=== PATIENT | female | born 1930 | race Caucasian/White ===

== ENCOUNTER 2017-03-14 11:45 | Emergency (ER) | payer MEDICARE ==
[~2017-03-14] VITALS: Ht 167.6 cm; Wt 46.7 kg
[~2017-03-14 11:45] MED LIST: ADVAIR 250-501 EACH INH; ASPIRIN325 MG PO; ATORVASTATIN CA10 MG PO; CALCIUM + VITA1 EACH PO; CARBAMAZEPINE200 M2 PO; DAILY VITE1 EACH PO; MELOXICAM7.5 MG PO; MIRALAX17 GM PO; NORCO 5-325 TA1 EACH PO; PREDNISONE20 MG PO; ZITHROMAX250 MG PO
[2017-03-14] MEDS ORDERED: LASIX20 MG PO (14:10)
[2017-03-14] MEDS ORDERED: KLOR-CON 88 MEQ PO (14:10)
--- NOTE | 2017-03-15 18:24 | EKG ---
[facility] [address] [facility] [place] [address] Signed Normal sinus rhythm Possible Left atrial enlargement Left posterior fascicular block T wave abnormality, consider inferior ischemia T wave abnormality, consider anterior ischemia Abnormal ECG When compared with ECG of 20-JUN-2016 22:47, T wave inversion now evident in Inferior leads T wave inversion now evident in Anterior leads Confirmed by ARRON SHANE MD ([id number]) on 03/15/2017 6:23:56 PM Electronically Signed By: ARRON SHANE MD 03/15/17 1824 PATIENT NAME: ANDREA PATEL Electrocardiogram DATE OF : 34 PHYSICIAN: ARRON SHANE MD REPORT #: [id number] REPORT IS CONFIDENTIAL AND NOT TO BE RELEASED WITHOUT AUTHORIZATION
== END 2017-03-14 14:25 | disposition home or self-care (01) ==
LOC: ED 11:45
DX: I50.9 Heart failure, unspecified (principal); J44.9 Chronic obstructive pulmonary disease, unspecified; F17.200 Nicotine dependence, unspecified, uncomplicated; Z90.710 Acquired absence of both cervix and uterus; Z89.429 Acquired absence of other toe(s), unspecified side; Z90.49 Acquired absence of other specified parts of digestive tract; Z88.1 Allergy status to other antibiotic agents; Z88.8 Allergy status to other drugs, medicaments and biological substances; Z79.899 Other long term (current) drug therapy; Z79.82 Long term (current) use of aspirin
CPT/HCPCS: 71020; 80053; 83880; 84484; 85025; 93005; 93010; 99284

== ENCOUNTER 2017-07-30 12:32 | Emergency (ER) | payer MEDICARE ==
[~2017-07-30] VITALS: Ht 167.6 cm; Wt 46.7 kg
--- OUTSIDE RECORDS SUMMARY | ~2017-07-30 | XMS | Clinical Summary ---
Demographics + + + | Address | [address] | | | [place] [address] | + + + | Home Phone | | + + + | Preferred Language | Unknown | + + + | Marital Status | Single | + + + | Shinto Affiliation | Unknown | + + + | Race | Unknown | + + + | Ethnic Group | Other Race | + + + Author + + + | Author | [facility] | + + + | Organization | [facility] | + + + | Address | Unknown | + + + | Phone | Unavailable | + + + Care Team Providers + +------+ + | Care Salesperson [employer]obiles Name | Role | Phone | + +------+ + PP | Unavailable | + +------+ + Source Comments BECKI is fully live on both [facility] Ambulatory and [facility] InPatient.[facility] Allergies Not on File Current Medications Not [...]
[~2017-07-30 12:32] MED LIST changes: +KLOR-CON 88 MEQ PO; +LASIX20 MG PO
[2017-07-30] MEDS ORDERED: LAMOTRIGINE25 MG PO (15:20)
[2017-07-30] MEDS ORDERED: OXYCODONE HCL5 MG PO (15:20)
== END 2017-07-30 15:35 | disposition home or self-care (01) ==
LOC: ED 12:32
DX: G50.0 Trigeminal neuralgia (principal); J44.9 Chronic obstructive pulmonary disease, unspecified; F17.200 Nicotine dependence, unspecified, uncomplicated; Z90.49 Acquired absence of other specified parts of digestive tract; Z90.710 Acquired absence of both cervix and uterus; Z88.1 Allergy status to other antibiotic agents; Z88.8 Allergy status to other drugs, medicaments and biological substances; Z79.899 Other long term (current) drug therapy; Z79.82 Long term (current) use of aspirin; Z89.429 Acquired absence of other toe(s), unspecified side
CPT/HCPCS: 99283

== ENCOUNTER 2017-08-04 16:37 | Inpatient (IN) | payer MEDICARE ==
[~2017-08-04] VITALS: Ht 167.6 cm; Wt 38.5 kg
--- OUTSIDE RECORDS SUMMARY | ~2017-08-04 | XMS | Clinical Summary ---
Demographics + + + | Address | [address] | | | [place] [address] | + + + | Home Phone | | + + + | Preferred Language | Unknown | + + + | Marital Status | Single | + + + | Mormonism Affiliation | Unknown | + + + | Race | Unknown | + + + | Ethnic Group | Other Race | + + + Author + + + | Author | [facility] | + + + | Organization | [facility] | + + + | Address | Unknown | + + + | Phone | Unavailable | + + + Care Team Providers + +------+ + | Care Supervisor Maintenance Name | Role | Phone | + +------+ + PP | Unavailable | + +------+ + Source Comments BECKI is fully live on both [facility] Ambulatory and [facility] InPatient.[facility] & [facility] Allergies Not on File Current Medications Not on file Active Problems Not on file Social History + +-------+ +--------+------+ | Tobacco Use | Types | Packs/Day | Years | Date | | | | | Used | | + +-------+ +--------+------+ | Never Assessed | | | | | + +-------+ +--------+------+ + + + | Sex Assigned at | Date Recorded | | | | + + + | Not on file | | + + + Plan of Treatment Not on file Results Not on filefrom Last 3 Months"
[~2017-08-04 16:37] MED LIST changes: +LAMOTRIGINE25 MG PO; +OXYCODONE HCL5 MG PO
--- NOTE | 2017-08-04 20:25 | NUR ---
PT HAS ARRIVED ON FLOOR. PT IS DISORIENTED TO ALL AT THIS TIME AND PHYSICALLY VERY WEAK. PT IS ALSO NOT ABLE TO FOLLOW MOST COMMANDS. PT HOWEVER DID PASS BEDSIDE SWALLOW STUDY AND WAS ABLE TO TAKE HER MEDICATION WITHOUT ASPIRATING. PERRLA IS REACTIVE, ALL LOBES ARE CLEAR.
--- NOTE | 2017-08-04 20:39 | EKG ---
[facility] [address] [facility] [place] [address] Signed Normal sinus rhythm Rightward axis Nonspecific ST abnormality Abnormal ECG When compared with ECG of 14-MAR-2017 12:39, T wave inversion less evident in Anterior leads Confirmed by ARRON SHANE MD ([id number]) on 08/04/2017 8:38:57 PM Electronically Signed By: ARRON SHANE MD 08/04/17 2039 PATIENT NAME: ANDREA PATEL Electrocardiogram DATE OF : 34 PHYSICIAN: ARRON SHANE MD REPORT #: [id number] REPORT IS CONFIDENTIAL AND NOT TO BE RELEASED WITHOUT AUTHORIZATION
--- NOTE | 2017-08-04 22:21 | NUR ---
PT FOUND WITH BOTH LEGS BETWEEN THE RAILS IN AN ATTEMPT TO GET OUT OF BED. CALL LIGHT WITIN HER REACH, BED ALARM ON. NEEDED VERBAL CUEING TO WAIT UNTIL RAIL DOWN AND COMMODE IN PLACE. ONE PERSON MIMINAL ASSISTANCE. ONCE DONE, SHE READILY GOT INTO BED, AND COVERED SELF UP. NOTE NO DEFICITS WITH BOTH LEGS AND ARMS. SPEECH AND "UNDERSTANDING" SEEMS AFFECTED. CALL LIGHT WITHIN HER REACH, AND BED ALARM SET.
--- NOTE | 2017-08-04 22:30 | NUR ---
BED ALARM ALERTED STAFF TO PATIENT EXITING BED. PATIENT HAD CLIMBED OVER BEDSIDE RAILS AND WAS HEADED INTO BATHROOM. ASSISTED PATIENT TO BSC. PATIENT SPEAKS CLEARLY BUT HER SPEECH IS INAPPROPRIATE. PATIENT ASSISTED BACK INTO BED. BED ALARM ON. CALL LIGHT IN REACH.
--- NOTE | 2017-08-05 01:27 | NUR ---
PATIENT EXITED THE BED WITHOUT ALERTING STAFF. BED ALARM SOUNDED. PATIENT ASSITED TO BSC. FOAM DRESSING APPLIED TO COCCYX AREA, REDNESS IN BLANCHABLE. PATIENT BACK IN BED. BED ALARM ON. PATIENT DOES NOT ANSWER QUESTIONS APPROPRIATELY. NO PHYSICAL DEFIECITS NOTICED.
--- NOTE | 2017-08-05 02:01 | NUR ---
PATIENT ASSESSMENT FIND PATIENT TO BE DISORIENTED TO ALL. PATIENT IS PLESANT BUT HER SPEECH IS INAPPROPRIATE. PATIENT DOES NOT FOLLOW DIRECTIONS BUT THERE DOES NOT APPEAR TO BE ANY PHYSICAL DEFICITS. PATIENT IS WEAK BUT ABLE TO MOVE HERSELF IN BAD AND AMBULATE WITHOUT ASSITANCE. SPEECH IS NOT SLURRED. PUPILS ARE EQUAL AND REACTIVE TO LIGHT. PATIENT HAS CLEAR LUNG SOUNDS THROUGHOUT, BREATHING IS SLIGHTLY LABORED. O2 SAT 100% ON 3L, TITRATED TO 2L NC. ABD IS FLAT, NONTENDER, AND BOWEL SOUNDS ARE ACTIVE. PATIENT APPEARS MALNOURISHED. TURNED PATIENT ONTO HER RIGHT SIDE. BED ALARM IN ON. PATIENT DENIES NEED TO USE THE BATHROOM. IVF INFUSING, SITE WNL.
--- NOTE | 2017-08-05 03:30 | NUR ---
BED ALARM ALERTED STAFF TO PATIENT GETTING OUT OF BED. ASSISTED PATIENT TO THE BSC. PATIENT BACK IN BED. BED ALARM ON.
--- NOTE | 2017-08-05 04:45 | NUR ---
NEW IV PLACED. PATIENT TOLERATED WELL. PATIENT IS RESTING COMFORTABLY. PATIENT'S SPEECH IS INAPPROPRIATE BUT CLEAR. UNABLE TO ANSWER QUESTIONS OR FOLLOW COMMANDS. IS COMPLAINT WITH CARE. NO CHANGES IN NEURO ASSESSMENT. PATIENT DRANK SOME WATER. NO COUGHING OR SIGNS OF ASPIRATION NOTED. BED ALARM ON.
--- NOTE | 2017-08-05 05:40 | NUR ---
PATIENT ARRIVED TO FLOOR AROUND 2100 LAST NIGHT. PATIENT DISORIENTED TO ALL. SPEECH INAPPROPRIATE, BUT CLEAR. 2L NC. BED ALARM IN USE, PATIENT IS IMPULSIVE. 1PA. IVF INFUSING, SITE WNL. OUTPUT IS QS. NUERO CHECKS Q4H. TOLERATING SIPS OF WATER. TELE #9, HR IN 80S. R ARM RESTRICTED.
--- NOTE | 2017-08-05 07:37 | NUR ---
WHITEBOARD UPDATED, ROOM TIDIED
--- NOTE | 2017-08-05 08:20 | NUR ---
ASSISTED PATIENT WITH EATING BREAKFAST, SHE SAID IT TASTED AWFUL AND ATE ONE BITE OF EACH ITEM. PATIENT AGREED TO DRINK ENSURE THOUGH.
--- NOTE | 2017-08-05 08:51 | NUR ---
PT RESTING IN BED QUIETLY. STARTLED WHEN ENTERING ROOM. INAPPROPRIATE RESPONSE TO QUESTIONS. WHEN ASKED BIRTHDAY SHE SAYS "SHOULD BE, YEAH". NO PHYSICAL DEFICITS NOTED. NEW IVF BAG HUNG. INFUSING AT 100ML/HR. FLUSHED FIELD START.
--- NOTE | 2017-08-05 09:35 | NUR ---
PATIENT DRANK ALL OF HER ENSURE.
--- NOTE | 2017-08-05 11:19 | NUR ---
PHYSICAL THERAPIST UNABLE TO DO MUCH THERAPY WITH PATIENT. APPEARED RESTLESS AND UNABLE TO FOLLOW DIRECTION. WILL TRY AGAIN TOMORROW.
--- NOTE | 2017-08-05 11:50 | NUR ---
PATIENT DOING WELL. SON IN ROOM. DOES NOT NEED ANYTHING AT THIS TIME.
--- NOTE | 2017-08-05 13:21 | NUR ---
PT ASSISTED BACK TO BED BY CHARGE NURSE. BED ALARM ON. CARBAMAZEPINE GIVEN PER NEW ORDER. PT RESTING WITH 2L [address].
--- NOTE | 2017-08-05 15:47 | NUR ---
UPDATED SON ON PLAN OF CARE AND CHANGES TO CARE MANAGEMENT TODAY. ALSO UPDATED ON EXTENDED PLAN FOR PATIENT IN REGARD TO ECHO US; HEAD AND NECK ANGIOGRAM.
--- NOTE | 2017-08-05 16:05 | NUR ---
i responded to the bed alarm going off, i got in the room to find the patient standing in her room, with all the bed rails up on the bed, im assuming she crawled over them. i instantly went to assist the patient so she did not fall and then quickly realized her iv was tugging the pole was on the other side of the bed, i called for assistance a few times and nurses came to aide and we got everything situated and moved her up closer to rm 121.
--- NOTE | 2017-08-05 17:43 | NUR ---
BED/CHAIR ALARM IN PLACE. IMPULSIVE. NO BOWEL MOVEMENT SINCE ADMISSION. 1PA TRANSFER. NEURO CHECKS-- FINISHED AT 1999. ENCOURAGE PO INTAKE. CARDIAC DIET. TELE 9. D5LR @ 60. PT/OT/ST.
--- NOTE | 2017-08-05 18:24 | NUR ---
PT IN BED EATTING DINNER.
--- NOTE | 2017-08-05 19:23 | NUR ---
SHIFT REPORT RECIEVED. PATIENT RESTING IN BED. PATIENT'S SON IS IN THE ROOM. BED ALARM ON. CALL LIGHT IN REACH.
--- NOTE | 2017-08-05 21:00 | NUR ---
EVEING MEDS GIVEN PER ORDER. PATIENT ABLE TO SWALLOW WITHOUT SIGNS OF ASPIRATION. RT IN ROOM, LUNG SOUNDS ARE CLEAR AND DIMINISHED IN BASES. BREATHING IS SLIGHTLY LABORED, RR 22. O2 97% ON 2L NC. PATIENT COMPLIANT WITH NEB TREATMENT WITH ENCOURAGEMENT FROM RN AND RT. YARI CARE AND PARTIAL BED BATH PERFORMED. PATIENT DOES NOT FOLLOW COMMANDS BUT MOVES ALL EXTREMITIES WITHOUT SIGN OF A DEFICIT. ORAL CARE PROVIDED. PATIENT POSITIONED TO LEFT SIDE WITH PILLOW. ALLYVEN PLACED ON RED AREA OF COCCYX. NO BREAKDOWN IS NOTED AT THIS TIME. BED ALARM IN PLACE. PATIENT IS DROWSEY AND APPEARS TO BE RESTING COMFORTABLY.
--- NOTE | 2017-08-05 22:58 | NUR ---
PATIENT HAS A TYMPANIC TEMP OF 100.2. MD CONTACTED. NO NEW ORDERS. PRN TYLENOL PROVIDED. PATIENT IS NONCOMPLAINT WITH SWALLOWING PILLS AT THIS TIME. MEDICATION PUT INTO PUDDING AND SHE WAS ABLE TO SWALLOW IT. PATIENT RR IS 24, SHE IS TOLERATING THE 2L NC WITH O2 SAT 98%. PATIENT UP TO BSC WITH 1PA. PATIENT BACK IN BED. TURNED TO HER RIGHT SIDE. BED ALARM ON.
--- NOTE | 2017-08-06 01:40 | NUR ---
TEMPORAL TEMP, 99.8. PATIENT RESTING WITH EYES CLOSED, RR22. BED ALARM ON.
--- NOTE | 2017-08-06 04:56 | NUR ---
PATIENT BECAME INCREASING AGITATED. FLAILING AROUND BUT NOT ATTEMPTING TO EXIT THE BED. PATIENT PULLED IV OUT AND CONTINUED TO CHANGE POSITION IN BED IF SHE WAS UNCOMFORTABLE. PATIENT NOT ABLE TO COMMUNICATE. PATIENT BEGAN TO DRY HEAVE. PRN ZOFRAN ADMINISTERED. VITAL SIGNS OBTAINED, DIFFICULT DUE TO PATIENT'S CONSTANT MOVEMENT. FUR DESIGNER IN ROOM. HOSPITALIST CONTACTED. NEW ORDERS FOR IV PHENERGAN RECIEVED AND VERIFIED USING READ BACK METHOD. NEW ORDERS IMPLIMENTED. PATIENT IS RESTLESS IN BED. PROVIDED FOR SAFETY. PATIENT DID NOT HAVE EMESIS BUT WAS DRY HEAVING. SUCTION SET UP SAFETY PRECAUTION BUT WAS NOT NEEDED.
--- NOTE | 2017-08-06 05:10 | NUR ---
PATIENT'S DRY HEAVING HAS DECREASED. SHE CONTINUES TO FIGET BUT TO A LESSER EXTENT. EYES ARE CLOSED. RR 24. 02 SAT 98% ON 1L NC. HR 58, SINUS NEIDA. BED ALARM ON. WILL CONTINUE TO MONITOR.
--- NOTE | 2017-08-06 05:24 | NUR ---
PATIENT RESTED WELL MOST OF THE NIGHT. INCREASED AGITATION THIS AM. PATIENT HAD A FEVER OF 100.2, TREATED WITH TYLENOL AND IS NOW AFEBRILE. PATIENT WAS DRY HEAVING, PRN NAUSEA MEDS PROVIDED. PATIENT CONTINUES TO BE SOME WHAT RESTLESS. O2 SAT 98%, 1L NC. TELE #9, HR 56. PATIENT IS IMPULSIVE, BED ALARM IN USE. 1PA TO BSC.
--- NOTE | 2017-08-06 05:50 | NUR ---
PATIENT MANUAL AMBER , DONE BY PROVER. CONTACTED. NEW ORDERS OBTAINED. VERIFIED USING READ BACK METHOD. LR BOLUS STARTED PER NEW ORDERS. PATIENT RESTING IN BED. WILL CONTINUE TO MONITOR.
--- NOTE | 2017-08-06 06:29 | NUR ---
PRODUCT ADVISOR ASSISTED PATIENT UP TO BSC. PATIENT IS NONCOMPLIANT. 2PA. PATIENT UNABLE TO VOID. BACK IN BED. BED ALARM ON.
--- NOTE | 2017-08-06 06:33 | NUR ---
ATTEMPTED TO HAVE PT VOID INTO THE BEDSIDE COMMODE WITH NO LUCK. INFORMED PTS RN AND SHE WAS GOING TO CONTACT HER DR ABOUT IT.
--- NOTE | 2017-08-06 08:46 | NUR ---
BLADDER SCANNED PATIENT-- 138ML. NO UO SINCE 0200. ATTENDS IN PLACE ARE DRY. WILL NOTIFY HOSPITALIST.
--- NOTE | 2017-08-06 09:19 | NUR ---
pt very sleepy at time of assessment. VSS. unable to wake to take meds. will try closer to 1000. son called for update at 0730. RN updated son. will expect him to come in after quaker.
--- NOTE | 2017-08-06 09:23 | NUR ---
PT SLEEPING IN BED WILL CHECK BACK LATER
--- NOTE | 2017-08-06 10:05 | NUR ---
HOSPITALIST NOTIFIED OF NO URINE OUTPUT AND BLADDER SCAN RESULTS. ORDERS TO CONTINUE IVF ORDERED AND WAIT.
--- NOTE | 2017-08-06 14:31 | NUR ---
PT IS SLEEPING. AM CARE. WASHED FACE WITH WASH CLOTH
--- NOTE | 2017-08-06 16:04 | NUR ---
PT AWAKENED TO VOICE/TOUCH. ASSISTED WITH 2 PEOPLE UP TO BSC TO ENCOURAGE URINATION. NO VOID. BED BATH WHILE UP ON BSC AND LOTION APPLIED TO UPPER BODY. ASSISTED WITH ORAL CARE WELL. GAVE ENSURE AND PATIENT TOOK SEVERAL SWALLOWS BEFORE NODDING BACK OFF TO SLEEP.
--- NOTE | 2017-08-06 16:16 | NUR ---
PT IS RESTING IN BED WILL CHECK BACK ON LATER
--- NOTE | 2017-08-06 17:40 | NUR ---
empty garbage. pt sleeping
--- NOTE | 2017-08-06 18:05 | NUR ---
PT SOMNOLENT ALL DAY. UNABLE TO GIVE PO MEDS. UP TO COMMODE TWICE. INADEQUATE URINE OUTPUT. HOSPITALIST AWARE. NO BM. TELE DC'D. 500 ML BOLUS OF LR TODAY. D5LR INFUSING AT 85. VITAL SIGNS STABLE. CT SCAN TONIGHT.
--- NOTE | 2017-08-06 18:06 | NUR ---
Bladder Scanned patient at 1800. Patient had 406 residual in her bladder. Asked patient by her name if she felt like she needed to pee? Fili shook her head no with a slight moan, as her eyes remained closed. Patient is resting in bed.
--- NOTE | 2017-08-06 19:05 | NUR ---
SHIFT REPORT RECIEVED. PATIENT RESTING IN BED, EYES CLOSED. RR 20. PATIENT'S SON AT BEDSIDE. HE WAS WONDERING IF THE PATIENT'S BLOOD GLUCOSE HAD BEEN CHECKED. HE REPORTED THAT SHE IS NOT A DIABETIC BUT DURING HER LAST HOSPITALIZATION SHE WAS RECIUEVING INSULIN INJECTIONS. MD AWARE. PATIENT WENT WITH DIAGNOSTIC IMAGING FOR ORDERED IMAGING.
--- NOTE | 2017-08-06 20:10 | NUR ---
PATIENT BACK FROM DIAGNOSTIC IMAGING. PATIENT COMPLAINED OF PAIN DURING AND AFTER TRANSFERING TO BED. PRN TYLENOL PROVIDED. PATIENT IS DROSWEY BUT AROUSES TO VOICE. SHE WAS ABLE TO TAKE HER PO MEDICATIONS WITHOUT ISSUE. PATIENT'S SON IS AT THE BEDSIDE. PATIENT WAS ABLE TO VERBILIZE THAT SHE WANTED TO GET UP TO USE THE RESTROOM. AT FIRST SHE COMPLAINED OF PAIN WITH MOVEMENT AND CHANGED HER MIND ABOUT USING THE BSC. AFTER LAYING STILL FOR A FEW MORE MINUTES SHE AGAIN REQUESTED TO USE THE BSC. PATIENT TRANSFERED WITH 1PA STAND AND PIVOT. PATIENT HAD 225ML OF CONSENTRATED URINE WITH SEDIMENT. PATIENT BACK IN BED. TURNED TO LEFT SIDE. 1L O2 NC. LUNG SOUNDS CLEAR. ABD FLAT AND NONTENDER, BOWEL SOUNDS ACTIVE. PATIENTS SKIN IS FRAGIL, CMS INTACT. PATIENT IS UNABLE TO ANSWER QUESTIONS FOR ORIENTATION. SHE DOES RECOGNIZE HER SON. BED ALARM ON. NO FURTHER NEEDS AT THIS TIME.
--- NOTE | 2017-08-06 21:00 | NUR ---
PATIENT RESTING IN BED. APPEARS COMFORTABLE. RR 20. 1L NC. EYES CLOSED. SON IS GOING HOME FOR THE NIGHT. BED ALARM ON.
--- NOTE | 2017-08-06 23:23 | NUR ---
PATIENT RESTING IN BED. APPEARS COMFORTABLE. RR22. 1L NC. BED ALARM ON.
--- NOTE | 2017-08-07 00:36 | NUR ---
PATIENT RESTING IN BED. RR 18. 1L NC. EYES CLOSED. APPEARS COMFORTABLE. BED ALARM ON.
--- NOTE | 2017-08-07 01:24 | NUR ---
PATIENT UP TO [facility], 2PA. PATIENT WAS COMPLIANT WITH CARE BUT CONTINUES TO BE UNABLE TO FOLLOW COMMANDS. PATIENT BACK IN BED. REPOSITIONED TO HER RIGHT SIDE. APPEARS COMFORTABLE. BED ALARM ON.
--- NOTE | 2017-08-07 03:30 | NUR ---
PATIENT RESTING IN BED. APPEARS COMFORTABLE. BED ALARM ON. RR 15.
--- NOTE | 2017-08-07 05:08 | NUR ---
ASSISTED PATIENT UP TO BSC. 2PA STAND AND PIVOT. PATIENT SAT ON BSC FOR 5MINS. NO OUTPUT. WILL ATTEMPT AGAIN IN AN HOUR. BED ALARM ON.
--- NOTE | 2017-08-07 06:22 | NUR ---
ASSISTED PATIENT TO BSC. 1PA STAND AND PIVOT. PATIENT TOLERATED WELL. SHE APPEARS A LITTLE RESTLESS WHEN OUT OF BED, BUT RELAXED ONCE BACK IN BED. SHE IS RESTING TURNED TO HER RIGHT. 1L NC IN PLACE. BEVERAGE STEWARD IN ROOM TO GET VS. BED ALARM ON.
--- NOTE | 2017-08-07 06:28 | NUR ---
PATIENT RESTED WELL THOUGHOUT THE NIGHT. SHE AROUSED EASILY. UP TO BSC WITH 1PA, STAND AND PIVOT. PATIENT TOLERATED PO MEDICATIONS. SHE CONTINUES TO NOT FOLLOW COMMANDS AND HER SPEECH IN INAPPROPRIATE. O2 1L NC. PRN TYLENOL X1. IVF INFUSING, SITE WNL. OUTPUT IS QS PER PARAMETERS, 300 FOR THE SHIFT. PATIENT HAS NOT USED CALL LIGHT OR ATTEMPTED TO EXIT THE BED. BED ALARM IN USE.
--- NOTE | 2017-08-07 07:15 | NUR ---
RECIEVED BEDSIDE REPORT FROM RADHA BONILLA. PT SLEEPING SOUNDLY. PT ON CONTINOUS PULSE OX TO FOREHEAD, OXYGEN SATURATION LEVEL 99-100%. PT SLEEPING SOUNDLY. HAS D5LR INFUSING AT 85CC/HR. PT ON 2L O2 VIA NC.
--- NOTE | 2017-08-07 08:26 | NUR ---
PT ALERT, DID NIH STROKE SCALE ASSESSMENT. SCORE 11. PT UNABLE TO STATE OWN NAME, BUT STATED SON'S NAME, AND THAT HE IS A "BIG DEAL". ABLE TO TELL ME YES AND NO WHAT SHE WANTED FOR BREAKFAST. DENIED PAIN. MOST OF SPEECH IS INAPROPRIATE, BUT SOME IS APROPRIATE. ABLE TO FOLLOW SOME COMMANDS.
--- NOTE | 2017-08-07 09:30 | NUR ---
SPOKE WITH SON CINDY ([phone]) IN ROOM. PATIENT AWAKE, IS SLIGHTLY CONFUSED AT THIS TIME. SON STATE HE IS AWARE SHE CANNOT RETURN HOME AT DISCHARGE. HE STATES HE WOULD LIKE HER TO GO TO [facility] FOR REHAB THAT IS CLOSE TO HIS HOME.
--- NOTE | 2017-08-07 10:09 | NUR ---
THIS RN ENTERED PT'S ROOM, RADHA RAM AND CASEY SEARS IN ROOM WITH PT. RADHA RAM REPORTED THAT PT HAD EPISODE OF EMESIS. ASSISTED PT IN GETTING CLEANED UP, CHANGING LINNENS AND GOWN. PT THEN HAD ANOTHER EPISODE OF EMESIS, 100 CC IN BAG, AND MORE ON PT'S CHEST BEFORE BAG WAS TO MOUTH. PT ASSISTED TO CHANGE GOWN AGAIN, THEN PT HAD ANOTHER EPISODE OF EMESIS.
--- NOTE | 2017-08-07 10:27 | NUR ---
GAVE PT ZOFRAN 4 [address] IV PRN. NOTIFIED DR. SHANE OF MULTIPLE EPISODES OF THICK BROWN EMESIS VIA TELEPHONE.
--- NOTE | 2017-08-07 11:19 | NUR ---
NOTIFIED DR. SHANE THAT PT HAS HAD NO URINE OUTPUT DURING THE PAST 4 HOURS. DID BLADDER SCAN, SHOWED 346. NOTIFIED DR. SHANE OF THIS. DR. SHANE IN TO SEE PT AND PT'S SON. DISCUSSED PLAN OF CARE WITH PT'S SON, PLAN FOR PT TO STAY AT LEAST ONE MORE NIGHT. PER DR. SHANE, IVF RATE INCREASED TO 125 CC/HR.
--- NOTE | 2017-08-07 11:52 | NUR ---
OBTAINED URINE SAMPLE USING STRAIGHT CATHETER, SUCCESSFUL ON SECOND ATTEMPT, USED STERILE TECHNIQUE. PT TOLERATED WELL. SAMPLE SENT TO LAB. SEAT JOINER CHAINSTITCH NOW IN WITH PT ATTEMPTING TO OBTAIN BLOOD FOR ORDERED TESTS.
--- NOTE | 2017-08-07 12:30 | NUR ---
CLINICALS FAXED TO [facility] FOR [facility]. FAX CONFIRMATION RECEIVED.
--- NOTE | 2017-08-07 13:16 | NUR ---
PT RESTLESS, HAD LEGS OVER SIDE OF BED, BETWEEN RAILS. ASSISTED PT IN REPOSTIONING, NO INJURIES TO LEGS NOTED. ASSISTED PT UP TO BEDSIDE COMMODE WITH 2 PERSON ASSIST, PT VOIDED 200 CC URINE. ASSISTED PT BACK TO BED. ASKED PT IF SHE WAS IN PAIN, SHE WAS STILL RESTLESS, GRIMACING, GRUNTING. PT NODDED YES. GAVE ACETAMINOPHEN 500 MG PO PRN.
--- NOTE | 2017-08-07 13:43 | NUR ---
Pt had taken out her oxygen and pulled off her O2 monitor. Matheus from physical therapy came to ask for help with her. She was not appropriate for PT at the time. placed the oxygen back on her with the monitor. bed alarm is set and call light in reach
--- NOTE | 2017-08-07 14:00 | NUR ---
SPOKE WITH ARABELLA SERRATO [facility]. SHE STATES THEY CAN ACCEPT PATIENT AT DISCHARGE. STAFF UPDATED.
--- NOTE | 2017-08-07 14:04 | NUR ---
PT RESTLESS, ASSISTED TO REPOSITION IN BED. GAVE SCHEDULED POTASSIUM CHLORIDE 40 MEQ PO. PT TOOK WITH APPLESAUCE.
--- NOTE | 2017-08-07 14:23 | NUR ---
PT'S SON CINDY CONTACTED ME AND WANTED TO VISIT. THIS HAS BEEN VERY DIFFICULT FOR HIM, FEELS GUILTY THAT HE DIDN'T CHECK SOONER-BUT THANKFUL A NEIGHBOR WAS CHECKING. HE BEGAN TO SHARE WITH ME PENT UP FEELINGS, LISTENED AND WALKED HIM THROUGH HIS EMOTIONS. SPENT QUITE A BIT OF TIME WITH CINDY, LOTS OF OTHER FAMILY ISSUES GOING ON WELL. HE MENTIONED HIS SU, AND LACK OF PLANNING THAT WAS DONE. THEY WERE TO GO TO AN [employer] TOMORROW. CINDY SAID HIS SOCIAL SCIENCES DEPARTMENT CHAIR IS AWARE OF HIS SITUATION, THANKED ME FOR LISTENING AND REQUESTED PRAYER. WILL FOLLOW NEEDED
--- NOTE | 2017-08-07 16:08 | NUR ---
HELPED THE NURSE PUT HER ON THE BEDSIDE COMMODE.
--- NOTE | 2017-08-07 16:16 | NUR ---
PT IN BED, AWAKE, ALERT, CONTINUES TO DISPLAY APHASIA.
--- NOTE | 2017-08-07 16:30 | NUR ---
CHECKED ON PATIENT SHE WAS TAKING OF HER OXYGEN SO I PUT IT BACK ON. NOW SHE IS SUCTIONING HER MOUTH.
--- NOTE | 2017-08-07 17:21 | NUR ---
PT PULLED IV PARTIALLY OUT THIS AFTERNOON, IV REPLACED. PT PULLING ON TUBING, ESPECIALLY OXYGEN TUBING, REMOVING OXYGEN. NOTIFIED DR. SHANE THAT PT HAS BEEN MORE AGITATED, AND PULLING OFF OXYGEN. NOTIFIED DR. SHANE THAT PT'S OXYGEN SATURATION LEVEL QUICKLY DROPS BELOW 90% WITH O2 OFF. DR. SHANE STATED THAT HE WOULD PLACE ORDERS.
--- NOTE | 2017-08-07 18:38 | NUR ---
PT PULLED IV, NEW IV STARTED BY RADHA PRO AFTER 2 ATTEMPTS. 20 G TO RIGHT UPPER ARM.
--- NOTE | 2017-08-07 18:39 | NUR ---
PT ATE MOST OF BREAKFAST WITH ASSIST FROM SON, AFTER WHICH SHE HAD EMESIS X 4. GAVE PRN ZOFRAN AND REGLAN. NO FURTHER EMESIS AFTER LAST PRN. POOR APETITE, PT REQUIRES ASSISTANCE WITH EATING AND DRINKING. MOVES AROUND IN BED A LOT, AND GETS ANXIOUS, AGITATED, RESTLESS OCCASIONALLY. AT TIMES THIS IS DUE TO NEED TO USE COMMODE, SO ASSESS FOR NEED IF PT AGITATED. PT UP WITH 2 PERSON ASSIST TO BEDSIDE COMMODE. HAS D5LR @ 125 CC/HR.
--- NOTE | 2017-08-07 20:02 | NUR ---
RECEIVED REPORT FR5OM DAY SHIFT RN. PATIENT IS RESTING IN BED WITH EYES CLOSED. PULSE OX READINGS ARE WNL.
--- NOTE | 2017-08-07 20:35 | NUR ---
PATIENT ASSESMENT COMPLETED. VITALS TAKEN AND RECORDED. PATIENT IS UNRESPONSIVE TO QUESTIONING A THIS TIME. PATIENT ASSISTED TO THE BSC A 2PA. PATIENT WAS UNABLE TO VOID, BUT ATTEND WAS WET. PATIENT WAS INCONTINENT. PATIENT TOOK EVENING MEDCIATION IN PUDDING. PATIENT GIVEN DRINKS OF WATER. PATIENT WAS ABLE TO DRINK OUT OF A STRAW WITH MUCH INSTRUCTION. PATIENT GIVEN PRN TYLENOL PATIENT CONTINUES TO BE RESTLESS AFTER PLACING PATIENT BACK IN BED AND REPOSITIINING. PATIENT REMAINS ON 2.5 L VIA NC. AND PULSE OX IN PLACE, PROBE IS PLACED ONM FOREHEAD. PATIENTS BED ALARM IS ON AND CALL LIGHT IN REACH.
--- NOTE | 2017-08-07 22:19 | NUR ---
PATIENT REPOSTITIONED IN BED AND PULSE OX PROBE REPLACED ON FOREHEAD. PATIENT CONTINUES TO BE UNRESPONISVE TO QUESTIONING. ONLY MOANS WHEN ASKED QUESTIONS. PATIENTS BED ALARM REMAINS ON AND CALL LIGHT IN REACH.
--- NOTE | 2017-08-08 00:02 | NUR ---
REPOSITIONED PATIENT. PATIENT TOLERATED ACTIVITY WELL. BED ALARM REMAINS ON AND CALL LIGHT IN REACH.
--- NOTE | 2017-08-08 02:27 | NUR ---
RADHA DEWITT AND I CHANGED PATIENT'S ATTENDS AND TURNED HER TO LEFT SIDE.
--- NOTE | 2017-08-08 02:33 | NUR ---
PATIENTS ATTEND CHANGED. PATIENT WAS INCONTINENT OF URINE. PATIENT REPOSTIIONED IN BED. PATIENT TOLERATED ACTIVITY WELL. PATIENT STILL DOES NOT ANSWER QUESTIONING. PATIENT STARES OFF INTO THE DISTANCE. PATIENTS BED ALARM ON FOR SAFETY. CALL LIGHT IN REACH.
--- NOTE | 2017-08-08 04:44 | NUR ---
PATIENT RESTED WELL THROUGHOUT THE SHIFT. PATIENT ONLY AWAKENS WHEN NEEDING TO USE THE RESTROOM OR BEING REPOSITIONED. PATIENT DOES NOT ANSWER ANY QUESTIONS. PATIENT DOES NOT NOD HEAD. PATIENT HAS JUST BEEN STARING OFF INTO THE DISTANCE. PATIENT IS HAS BEEN REPOSITIONED MULTIPLE TIMES. PATIEN TIS ON A CARDIAC DIET AND REFUSES TO EAT. PATIENT OFFERED SIPS OF WATER OFTEN. PATIENT IS ON 2L VIA NC. PATIENT RECEIVED TYLENOL X1 AFTER BEING RESTLESS. PATIENTS BED ALARM IS ON FOR SAFETY AND SEIZURE PADS IN PLACE. PATIENTS BED ALARM IN ON FOR SAFETY. PATIENT DOES NOT USE CALL LIGHT. CHECKED ON FREQUENTLY.
--- NOTE | 2017-08-08 06:34 | NUR ---
PATIENTS VITALS TAKEN AND RECORDED. PATIENTS ATTEND CHANGED. PATIENT REMAINS ON 2L VIA NC. PATIENT REPOSITIONED IN BED. PATIENT CONTINUES TO NOT ANSWER QUESTIONING. PATIENTS BED ALARM REMAINS ON FOR SAFETY. CALL LIGHT IN REACH.
--- NOTE | 2017-08-08 08:30 | NUR ---
2 PERSON ASSIST WITH PATIENT'S BED BATH. YARI CARE AND ORAL CARE DONE. RN AND SON IN ROOM. FRESH WATER GIVEN. NO OTHER NEEDS AT THIS TIME.
--- NOTE | 2017-08-08 09:34 | NUR ---
PT GIVEN AM MEDICATIONS, SPIT OUT ONE TAB OF TEGRATOL, SWALLOWED THE REST. IS DROWSY, ANSWERS INAPROPRIATE. PT UNABLE TO STATE NAME, SON'S NAME, WHO IS IN ROOM, WHERE SHE IS, OR THE EVENTS THAT ARE OCCURING. DR. SHANE DISCUSSING PT'S CODE STATUS WITH PT'S SON, EXPLAINING POLST FORM. PT HAD BED BATH. WAS INCONTINENT OF URINE. ASSISTED TO CHANGE INTO CLEAN ATTENDS AND GOWN.
--- NOTE | 2017-08-08 09:42 | NUR ---
JUAREZ RT IN TO GET ABG. TAKEN FROM LEFT WRIST.
--- NOTE | 2017-08-08 10:00 | NUR ---
PATIENT RESTING IN BED WITH EYES CLOSED. CHAPLEN IN ROOM TALKING TO PATIENT'S SON. NO NEEDS AT THIS TIME.
--- NOTE | 2017-08-08 10:09 | NUR ---
PT IN BED, HOB ELEVATED. LICENSING OFFICER, INGRID OBTAINING VS. PT RESTING WITH EYES CLOSED.
--- NOTE | 2017-08-08 11:42 | NUR ---
PT IN BED, HOB ELEVATED, PT RESTING QUIETLY WITH EYES CLOSED. IS ON 2L O2 VIA NC.
--- NOTE | 2017-08-08 12:10 | NUR ---
HAPPENS-IT PT RESTING IN BED UNAWARE OR UNABLE TO RESPOND. HER SON CINDY WAS IN RM, HE BEGAN TO VENT TO ME ABOUT HIS FEELINGS SEEING HER DEMISE. HAD PRAYER WITH CINDY, WILL CONTINUE TO FOLLOW NEEDED
--- NOTE | 2017-08-08 12:56 | NUR ---
PT HAS NOT HAD A BM SINCE 08/04/17, PER RECORD. GAVE BISACODYL SUPPOSITORY NM 10 MG FOR CONSTIPATION. FELT SMALL AMOUNT OF FIRM STOOL IN RECTAL VAULT.
--- NOTE | 2017-08-08 13:49 | NUR ---
PATIENT RESTING IN BED WITH EYES CLOSED. PATIENT'S SON IS IN ROOM TALKING TO THE CHAPLEN. NO OTHER NEEDS AT THIS TIME.
--- NOTE | 2017-08-08 14:50 | NUR ---
PT SLEEPING SOUNDLY. ON 2L O2 VIA NC. NO S/S DISTRESS OR DISCOMFORT.
--- NOTE | 2017-08-08 15:25 | NUR ---
ENTERED PT'S ROOM, REPLACED IVF BAG. PT OPENED EYES, LOOKED AT THIS RN. THIS RN SAID "HI FARIHA" TO PT. PT REPLIED "HI". ASKED PT IF SHE NEEDED TO USE THE BEDSIDE COMMODE TO GO TO THE BATHROOM. PT REPLIED "NO". PT'S ATTENDS IS DRY. NO S/S DISTRESS OR DISCOMFORT AT THIS TIME.
--- NOTE | 2017-08-08 15:35 | NUR ---
PATIENT RESTING IN BED. RN IN ROOM. THIS CONSTRUCTION SUPERINTENDENT WASHED FACE AND USED SHOWER CAP ON HAIR.
--- NOTE | 2017-08-08 18:02 | NUR ---
PT'S SON IN WITH PT. PT'S SON FED PT LEMON PUDDING CUP, AND IS ASSISTING PT IN DRINKING STRAWBERRY ENSURE. ALSO ICE WATER. PT IS ACCEPTING OF THIS PO INTAKE, AND SHOWING NO ISSUES WITH SWALLOWING. IS MORE ALERT THAN EARLIER THIS SHIFT. NO S/S PAIN.
--- NOTE | 2017-08-08 18:46 | NUR ---
PT REMAINS APHASIC, VERBAL RESPONSES ARE FOR THE MOST PART INAPROPRIATE OR INCOMPREHENSIBLE. PT HAS DIFFICULTY FOLLOWING COMMANDS. 2 PERSON STAND PIVOT TO BEDSIDE COMMODE. INCONTINENT OF URINE, WEARS ATTENDS. URINE OUTPUT SUFFICIENT. HAD A SMEAR, NO REAL RESULTS FROM BISACODYL SUPPOSITORY. HAS D5LR INFUSING AT 125 CC/HR. ON 3L O2 VIA NC MOST OF SHIFT, WITH INCREASED WORK OF BREATHING, BUT WAS ABLE TO TITRATE TO 2L VIA NC THIS AFTERNOON. PT HAS INCREASED WORK OF BREATHING OFF AND ON BUT OXYGEN SATURATION LEVEL 90% OR GREATER. VERY POOR PO INTAKE. PT DROWSY THIS AM AND EARLY AFTERNOON, REFUSED ALMOST ALL PO INTAKE. PT DID EAT 1 CUP LEMON PUDDING WITH ASSIST FROM SON THIS EVENING, BUT HAS REFUSED FURTHER PO INTAKE.
--- NOTE | 2017-08-08 18:47 | NUR ---
PATIENT IN BED. RN NOTIFIED ABOUT BP.
--- NOTE | 2017-08-08 19:57 | NUR ---
RECVEIVED REPORT FROM DAY SHIFT RN. PATIENT IS RESTING IN BED AND RESPONDING TO QUESTIONING. PATIENT PROVIDED WITH SIPS OF WATER. PATIENT DENIES FURTHER NEEDS. BED ALARM ON AND CALL LIGHT IN REACH.
--- NOTE | 2017-08-08 22:00 | NUR ---
PATIENT ASSESMENT COMPLETED AND RECORDED. PATIENT IS AWAKE AND ALERT. PATIENT KNOWS HER OWN NAME AND KNOWS SHE IS IN THE HOSPITAL. PATIENT DOES NOT KNOW WHY SHE IS HERE, THE DATE OR THE TIME. PATIENT RE-ORIENTED TO TIME, PLACE, DATE, AND EVENT. PATIENTS EVENING MEDICATIONS GIVEN WITH CHOCOLATE PUDDING. NO ISSUES NOTED WITH SWALLOWING. PATIENT GIVEN TYLENOL FOR COMPLAINS OF DISCOMFORT IN HER LOWER BACK. PATIENT REPOSTITIONED IN BED. PATIENT GIVEN SIPS OF WATER. PATIENT REMAINS ON 2L VIA NC. PATIENTS VITALS TAKEN AND RECORDED. PATIENT DENIES ANY NEEDS. PATIENTS BED ALARM REMAINS ON AND CALL LIGHT IS WITHIN REACH.
--- NOTE | 2017-08-08 22:02 | NUR ---
NURSE IS AWARE RE VITEL SIGNS.
--- NOTE | 2017-08-08 23:57 | NUR ---
PATIENT REPOSITIONED. PATIENT TOLERATED ACTIVITY WELL. PATIENT DENIES ANY NEEDS. PATIENT REORIENTED TO SURROUNDINGS. BED ALARM IS ON AND CALL LIGHT IN REACH.
--- NOTE | 2017-08-09 00:30 | NUR ---
RADHA DEWITT AND I CHANGED PATIENT'S ATTENDS AND TURNED TO RIGHT SIDE.
--- NOTE | 2017-08-09 00:52 | NUR ---
PATIENTS ATTEDN CHANGED. PATIENT INCONTINENT OF URINE. PATIENT REPOSITIONED ONTO HER RIGHT SIDE. PATIENT GIVEN SIPS OF WATER. PATIENT DENIES ANY NEEDS. BED ALARM ON AND CALL LIGHT IN REACH.
--- NOTE | 2017-08-09 02:35 | NUR ---
PATIENT REPOSITIONED. PATIENT TOLERATED ACTIVITY WELL. PATIENT IS NOW BACK TO RESTING WITH HER EYES CLOSED. BREATHING IS EVEN AND UNLABORED, RR 17
--- NOTE | 2017-08-09 04:58 | NUR ---
PATIENT RESTED WELL THROUGHOUT THE SHIFT. PATIENT IS ALERT BUT NOT ORIENTED. PATIENT DOES KNOW HER NAME AND THAT SHE IS IN THE HOSPITAL. PATIENT ANSWERS QUESTIONS APPROPRIATELY, BUT IS SLOW TO ANSWER QUESTIONS. PATIENT IS ON A CARDIAC DIET AND INTAKE IS DECREASED. PATIENT PO IN TAKE ENCOURAGE. SIPS OF WATER OFFERED OFTEN. PATIENT IS ON 2L VIA NC. PATIENT NO OUT OF BED THIS SHIFT. PATIENT INCONT. PATIENT TURNED Q2. PATIENT HAD SMALL BM. PATIENT GIVEN TYLENOL FOR DISCOMFORT. PATIENT DOES NOT USE CALL LIGHT. PATIENT HAS BED ALRM ON.
--- NOTE | 2017-08-09 05:40 | NUR ---
VITALS TAKEN AND RECORDED. PATIENTS ATTEND CHANGED. PATIENT REPOSITIONED IN BED. PATIENT GIVEN SIPS OF WATER. PATIENT DENIES ANY PAIN. PATIENT DENIES ANY FURTHER NEEDS. CALL LIGHT IN REACH.
--- NOTE | 2017-08-09 07:04 | NUR ---
RECIEVED BEDSIDE REPORT FROM RADHA DEWITT. PT IN BED, ALERT, ANSWERED SOME YES AND NO QUESTIONS APROPRIATELY. WHEN OBTAINING BREAKFAST ORDER FROM PT, SHE STATED "YES" WHEN ASKED IF SHE WANTED EGGS, AND STATED "NO, I DON'T THINK SO" WHEN ASKED IF SHE WANTED CREAM OF WHEAT, OATMEAL, OR TOAST. PT REPLIED "NO" WHEN ASKED IF SHE WERE HAVING PAIN. REPOSITIONED PT IN BED. PT TOOK 3 SIPS OF WATER FROM STRAW.
--- NOTE | 2017-08-09 07:30 | NUR ---
PATIENT RESTING IN BED WITH EYES CLOSED.
--- NOTE | 2017-08-09 09:03 | NUR ---
PT IN BED, RESTING WITH EYES CLOSED. AROUSED TO VERBAL STIMULI. CONTINUES TO DISPLAY APHASIA, WITH INAPROPRIATE OR INCOMPREHENSIBLE WORDS MUCH OF THE TIME, BUT WAS ABLE TO STATE HER DATE OF , AND WHEN ASKED WHAT YEAR IT IS, SHE STATED "19". UNABLE TO STATE HER NAME, WHERE SHE IS, HER SON'S NAME, OR WHY SHE IS IN THE HOSPITAL. TOOK AM MEDICATIONS IN APPLESAUCE, SWALLOWED WITHOUT ISSUE. ALSO TOOK 3 DRINKS OF WATER USING STRAW. REFUSED PO BREAKFAST, INCLUDING ENSURE, AT THIS TIME. DENIED NEED TO USE BEDSIDE COMMODE, STATE "NO" WHEN ASKED IF SHE NEEDED TO PEE. ATTENDS DRY. ASSISTED PT TO REPOSITION FOR COMFORT.
--- NOTE | 2017-08-09 09:12 | NUR ---
RN IN WITH PATIENT AT THIS TIME.
--- NOTE | 2017-08-09 09:15 | NUR ---
PT INCONTINENT IN ATTENDS. WHILE CHANGING ATTENDS, PT INCONTINENT OF URINE AGAIN. CHANGED ATTENDS, GOWN, DRAW SHEET, AND CHUCKS. POSITIONED PT WITH PILLOW UNDER LEFT HIP. HOB ELEVATED. PT REMAINS ON 2L O2 VIA NC. ASSISTED PT IN WASHING FACE.
--- NOTE | 2017-08-09 10:06 | NUR ---
NOTIFIED DR. GARNER THAT PT'S IV INFILTRATED, ASKED IF WE COULD LEAVE IV OUT. DR. GARNER STATED THAT THE PLAN IS FOR PT TO D/C TO [place] TODAY, AND THAT IT IS OK TO LEAVE IV OUT.
--- NOTE | 2017-08-09 10:47 | NUR ---
PATIENT IN BED WITH EYES CLOSED. SON IN ROOM. VITALS REPORTED TO RN.
--- NOTE | 2017-08-09 10:49 | NUR ---
INGRID PEAÑ, ALERTED THIS RN THAT SHE GOT A RESPIRATORY RATE OF 30 FOR PT, AND THAT HER BP WAS ELEVATED. THIS RN ASSESSED PT, DID MANUAL BP: 164/96, COUNTED RESPIRATORY RATE FOR 60 SECONDS, RR [address] GARNER OF ABOVE NOTED.
--- NOTE | 2017-08-09 11:00 | NUR ---
SPOKE WITH PATIENTS SON, CINDY IN ROOM. HE STATES HE SPOKE WITH DR GARNER REGARDING TRANSFER TO REHAB TODAY. HE IS STILL IN AGREEMENT WITH SARA PECK. CINDY IS TEARFUL. HE STATES HE IS WORRIED HIS MOTHER DOESN'T SEEM TO TAKE ENOUGH FOOD IN. WE DISCUSSED THAT SHE MAY IN TIME ACCEPT MORE FOOD, BUT THAT SHE MAY NOT. DISCUSSED IF SHE DIDN'T HE HAS THE OPTION OF LOOKING AT FEEDING TUBE. HE STATES "NO, SHE NEVER WANTED ANYTHING LIKE THAT DONE TO HER". WE DISCUSSED HOW HARD IT IS TO WATCH HER STRUGGLE. I DISCUSSED TO SPEND MUCH TIME WITH HER IN FACILITY POSSIBLE AND ENCOURAGE BITES/DRINKING A FAMILY PRESENCE ASSURRES PATIENTS. WE ASKED PASTORAL CARE TO GO SPEAK WITH SON AND PATIENT.
--- NOTE | 2017-08-09 11:38 | NUR ---
PASTORAL CARE IN ROOM. DISCUSSED WITH SON THAT WE ARE ORDERING NON-EMERGENT EMS TRANSFER TO FACILITY WE ARE CONCERNED WHEELCHAIR TRANSFER ISN'T SAFE WITH HER CONDITION AT THIS TIME. DISCUSSED THAT MEDICARE WILL BE BILLED AND WE HAVE FILLED PAPERWORK OUT FOR COVERAGE, BUT THAT COVERAGE WILL BE DETERMINED LATER. HE STATED HE THINKS HE MOTHER HAS AMBULANCE COVERAGE ON HER OWN, TOO.
--- NOTE | 2017-08-09 12:04 | NUR ---
ORDERS, UPDATED CLINICALS AND PASSR FAXED TO [facility]. FAX CONFIRMATION RECEIVED.
--- NOTE | 2017-08-09 12:05 | NUR ---
PT IN BED, RESTLESS. CHECKED ATTENDS, PT INCONTINENT OF URINE. WHILE CHANGING ATTENDS, PT VOIDED MORE URINE, LARGE AMOUNT. CHANGED PT'S ATTENDS AFTER CLEANSING YARI AREA, CHANGED PT'S GOWN, WELL CHUCKS UNDER PT. PT POSITIONED WITH PILLOW UNDER RIGHT HIP. HOB ELEVATED. ORAL CARE ATTEMPTED BY CONSTRUCTION FIELD ENGINEER, PT REFUSED, TURNING HEAD AWAY FORCEFULLY, KEEPING LIPS CLOSED. CONSTRUCTION FIELD ENGINEER INGRID ASSISTED PT IN WASHING FACE.
--- NOTE | 2017-08-09 12:09 | NUR ---
PERICARE DONE. NEW GOWN. PATIENT REFUSED ORAL CARE. PATIENT REPOSITIONED ONTO LEFT HIP. BED ALARM ON.
--- NOTE | 2017-08-09 12:44 | NUR ---
SON CALLED AT 1245 TO LET HIM KNOW THAT PATIENT IS TRANSPORTING NOW.
--- NOTE | 2017-08-09 13:09 | NUR ---
GAVE REPORT TO TRAVIS Sewell RN AT [facility]. QUESTIONS ASKED AND ANSWERED, VERBALIZED UNDERSTANDING. PT TRANSFERED FROM BED TO [facility], TRANSPORPT PROVIDED BY [facility], LEFT TO GO TO [facility] VIA NON EMERGENT AMBULANCE TRANSPORT AT 1245.
--- NOTE | 2017-08-10 07:18 | NUR ---
PT WILL OPEN HER EYES WHEN SPOKEN TO. SHE REACHED OUT AND HELD MY HAND I SPOKE TO HER. SON CINDY WAS IN RM, IS REALLY STRUGGLING WITH THE DEMISE OF HIS MOTHER. THE LITTLE GLIMPES HE SEES WHEN SHE RESPONDS TO COMMANDS IS CONFUSING TO HIM. LET HIM VENT, TRIED TO GET HIM TO FOCUS ON MOM'S CARE AND PUTTING HIS SU IN GOD TO WORK FOR HIM. AFTER PT WAS TAKEN TO [facility], CINDY CALLED AND ASKED IF HER CLOTHES AND GLASSS WERE STILL IN HER RM, WHICH THEY WERE. HE THEN VENTED THAT T HAD EVIDENTLY NOT RECEIVED ANY INFO ON PT FROM [facility]. THE PT'S INFO HAD NOT GOTTEN APPARENTLY TO THOSE IN HER DIRECT CARE. HE IS VERY UPSET. WILL BE AVAILABLE NEEDED
== END 2017-08-09 12:45 | DRG 69 ==
LOC: ED 16:37 → MS 19:41
PROVIDERS: ADMIT Internal Medicine
DX: G45.9 Transient cerebral ischemic attack, unspecified (principal)
CPT/HCPCS: 36600; 51701; 70450; 70496; 70498; 70551; 71010; 80053; 80061; 80156; 81001; 82803; 84484; 85025; 85610; 85730; 92523; 93005; 93010; 93306; 94640; 94760; 94762; 97162; 97165; J1650; J2405; J2550; J7120; Q9967

== ENCOUNTER 2017-09-01 09:28 | Inpatient (IN) | payer MEDICARE ==
[~2017-09-01] VITALS: Ht 167.6 cm; Wt 38.1 kg
[2017-09-01] MEDS ORDERED: ACETAMINOPHEN500 M4 PO (09:36)
[2017-09-01] MEDS ORDERED: COLACE100 MG PO (09:38)
[2017-09-01] MEDS ORDERED: DULCOLAX10 MG PR (09:39)
[2017-09-01] MEDS ORDERED: FLEET ENEMA133 ML PR (09:39)
[2017-09-01] MEDS ORDERED: IPRAT-ALBUT 0.5-3 ML INH (09:40)
[2017-09-01] MEDS ORDERED: MILK OF MA400 MG/5 M PO (09:42)
[2017-09-01] MEDS ORDERED: MIRALAX17 GM PO (09:43)
[2017-09-01] MEDS ORDERED: [UNRECOGNIZED DRUG - REMARK] BUCCAL (09:44)
[2017-09-01] MEDS ORDERED: PLAVIX75 MG PO (09:45)
[2017-09-01] MEDS ORDERED: ZOFRAN4 MG PO (09:46)
--- NOTE | 2017-09-01 11:56 | NUR ---
ASKED DOCTOR SHANE IF HE WOULD LIKE ANOTHER LACTIC ACID DRAWN AT 1400 DUE TO LEVEL AT 2.4 AND HE DECLINED A REDRAW AT THIS TIME
--- NOTE | 2017-09-01 12:40 | NUR ---
PT ARRIVED TO FLOOR FROM ER VIA STRETCHER. SON AT BEDSIDE. PT OPENS EYE'S TO NAME. PT VERY RESTLESS IN BED. TOSSING AND TURNING. APPEARS TO BE UNCOMFORTABLE. ATTEMPTED REPOSITIONING WITH PILLOWS AND WARM BLANKETS. PT STILL REMAINS RESTLESS.
--- NOTE | 2017-09-01 13:10 | NUR ---
SPOKE WITH SON ABOUT PLAN OF CARE. ANSWERED QUESTIONS. VERBALIZED UNDERSTANDING.
--- NOTE | 2017-09-01 14:23 | NUR ---
pt resting in bed on right side. appears to be less aggitated and restless. bed alarm in place.
--- NOTE | 2017-09-01 15:01 | NUR ---
FLU RESULTS POSTIVE. PLACE PT ON DROPLET PRECAUTIONS. NOTIFED PTS SON AND [place] [facility] OF THE RESULTS.
--- NOTE | 2017-09-01 15:46 | NUR ---
PT IN BED, ISOLATION PRECAUTIONS DUE TO INFLUENZA. PATIENT IS NON VERBAL AT THIS TIME ACCORDING TO PAPER GUILLOTINE OPERATOR. DR SHANE IS CALLING PATIENTS SON, CINDY KEMP TO UPDATE HIM ON LABS AND MEDICATION ISSUES. SARA PECK HAS BEEN INFORMED OF THE POSITIVE INFLUENZA SCREEN. I SPOKE DIRECTLY WITH COMPARISON SHOPPER, NICKY.
--- NOTE | 2017-09-01 16:02 | NUR ---
in room to place ng tube per md. ng tube placed in order to give tamiflu. pt tolerated placement well. 2nd rn Pilar in room to help with placement. chest x ray ordered to confirm placement.
--- NOTE | 2017-09-01 18:21 | NUR ---
pt resting in bed with son in room. pt continues to be restless in bed.
--- NOTE | 2017-09-01 18:38 | NUR ---
pt admitted from ED this afternoon. Pt only responsive to shacking. Pt non verbal. will open eye's. very restless in bed. peralta in place. 2l nc. ng-tube for meds. positive for influenza B. droplet precautions. very fragile skin. multiple skin tears.
--- NOTE | 2017-09-01 19:10 | NUR ---
RECIEVED REPORT FROM DAY SHIFT NURSE. PATIENT IN BED. PATIENT VERY RESTLESS IN BED. I ASKED IF SHE WAS IN PAIN AND SHE SAID NO. NGT IN PLACE, NASAL CANNULA IN PLACE AT 2L/MIN. PLACED HEEL PROTECTORS ON HER FEET. BED ALARM ON. CALL LIGHT IN REACH.
--- NOTE | 2017-09-01 20:00 | NUR ---
PATIENT'S IV PUMP BEEPING ALMOST EVERY 10 MINUTES. PLACED ARM BOARD ON L ARM. ABX FINISHED INFUSING. FLUSHED SITE, IVF NOW INFUSING. PATIENT NOT RESTLESS AT SHE WAS AT THE START OF THE SHIFT. REPOSITIONED HER ON L SIDE. REDNESS AND SMALL SCAB NOTED ON BONY PROMINENCE ON BOTTOM. DIFFICULTY AUSCULTATING LUNGS. NO COUGH NOTED. PATIENT NOT IN RESPIRATORY DISTRESS. +1 EDEMA NOTED IN FEET. MULTIPLE SKIN TEARS SCATTERED ON LEGS AND ARMS. FRAGILE SKIN. PATIENT IS AWARE OF HER MONTH AND DAY. I ASKED HER IF SHE WAS AWARE OF HER SURROUNDINGS, PATIENT STATED HER BIRTHDAY AGAIN. BED ALARM ON. CALL LIGHT IN REACH.
--- NOTE | 2017-09-01 20:38 | NUR ---
PATIENT RETCHING. I ASKED IF SHE FELT LIKE SHE WAS GOING TO VOMIT, PATIENT SAID YES. ADMINISTERED ZOFRAN. ASPIRATED 20CC STOMACH CONTENTS AND REPLACED WITH 20CC TAP WATER. CALL LIGHT IN REACH. BED ALARM IN PLACE. PATIENT HAS SINCE STOPPED RETCHING.
--- NOTE | 2017-09-01 21:17 | NUR ---
PATIENT DENIES NAUSEA. RT IN TO ADMINISTER NEB TX. BED ALARM ON.
--- NOTE | 2017-09-01 22:15 | NUR ---
CHANGED PATIENT'S BED LINEN. REPOSITIONED ON R SIDE. ABX INFUSING. PATIENT WAS ABLE TO SWALLOW PILLS ONE BY ONE W/O DIFFICULTY. PATIENT STATES, "I NEED SLEEP." BED ALARM ON. CALL LIGHT IN REACH.
--- NOTE | 2017-09-01 23:31 | NUR ---
PATIENT RESTING WITH EYES CLOSED. SHE WOKE UP FOR A MOMENT WHILE I WAS CHECKING HER IV SITE. PINTO DRAINING WELL. NASAL CANNULA AND NGT IN PLACE. PATIENT APPEARS COMFORTABLE. CALL LIGHT IN REACH. BED ALARM ON.
--- NOTE | 2017-09-02 00:29 | NUR ---
REPOSITIONED PATIENT ON L SIDE. PINTO CATHETER DRAINING WELL. CHECKED FOR EPISODE OF STOOL INCONT., FOUND DRY. NASAL CANNULA IN PLACE AT 2L/MIN. RR 24 [address]ILE [address]EP. NGT IN PL[address]. IVF INFUSING W/O DIFFICULTY. CALL LIGHT IN REACH. BED ALARM ON.
--- NOTE | 2017-09-02 01:57 | NUR ---
REPOSITIONED PATIENT TO SUPINE POSITION. PINTO EMPTIED. VS OBTAINED. IVF INFUSING W/O DIFFICULTY. NASAL CANNULA AND NGT IN PLACE. BED ALARM ON, CALL LIGHT IN REACH.
--- NOTE | 2017-09-02 02:30 | NUR ---
IV PUMP BEEPING B/C ABX FINISHED INFUSING. IV SITE WNL. ARM BOARD STILL IN PLACE. PT'S RR WHILE ASLEEP IS 18. AUSCULTATED LUNGS ANTERIORLY, DIM IN UPPER LOBES, CRACKLES HEARD IN LLL, DIM IN RLL. SHALLOW BREATHS. OCCASIONAL MOIST COUGH. +1 EDEMA NOTED IN BLE. PATIENT HAS SCATTERED SKIN TEARS ON BLE. FOAM DRESSING TO RLE C/D/I. PATIENT DENIES PAIN AND NAUSEA AT THIS TIME. SHE IS ABLE TO TELL ME HER NAME AND BIRTHDAY. MOUTH SWABS OFFERED. PATIENT DENIES NEEDS. CALL LIGHT IN REACH. BED ALARM ON.
--- NOTE | 2017-09-02 04:23 | NUR ---
REPOSITIONED PATIENT ON R SIDE. CHECKED FOR EPISODE OF INCONT, FOUND DRY. PINTO DRAINING, HEEL PROTECTORS IN PLACE, NASAL CANNULA IN PLACE, NGT IN PLACE. CALL LIGHT IN REACH. BED ALARM ON.
--- NOTE | 2017-09-02 06:21 | NUR ---
EMPITED PINTO. REPOSITIONED PATIENT ON L SIDE. CHECKED FOR EPISODE OF STOOL INCONT, FOUND DRY. HEEL PROTECTORS, NASAL CANNULA AND NGT ALL IN PLACE. CALL LIGHT IN REACH. BED ALARM ON.
--- NOTE | 2017-09-02 08:00 | NUR ---
UPDATED SON ON POC WITH PATIENT FOR DAY AND HOW DAY WENT. NOTED ADVENTICIOUS LUNG SOUNDS. PATIENT BREATHING EASY, WITH EYES CLOSED. RT IN ROOM PROVIDING BREATHING TX.
--- NOTE | 2017-09-02 09:11 | NUR ---
rounded in patients room. patient changed by receptionist nurse and nurse. pictures taken of patients backside due to breakdown that was documented on assessment. printed and placed in chart. ng tube in place. patient not taking fluids at this time.
--- NOTE | 2017-09-02 10:16 | NUR ---
PT WAS REPOSITIONED HIGHER IN BED AND ON HER RIGHT SIDE. NURSE JULIA PROVIDED THE PT WITH ORAL CARE. PT IS NOW RESTING SAFELY WITH CALL LIGHT IN REACH
--- NOTE | 2017-09-02 11:44 | NUR ---
ATTEMPTED TO ADMINISTER PO POTASSIUM PER NG. PATIENT NAUSEATED ALMOST IMMEDIATLEY. ONLY 5 ML OF POTASSIUM ADMINISTERED. STOPPED, AND ADMINISTERED ZOFRAN IV FOR NAUSEA. REPOSITIONED WITH PILLOWS. VS STABLE. REPORTED TO DR. SHANE. PATIENT NOW APPEARS RESTLESS IN BED, EYES WIDE OPENED, NON VERBAL.
--- NOTE | 2017-09-02 13:00 | NUR ---
ADMINISTERED MALOX BEFORE ADMINISTERING PO POTASIUM IN NG FEEDING TUBE, PATIENT TOLERATED WELL. NO SIGNS OF NAUSEA. PATIENT APPEARS DROWSY. WILL OPEN TO EYES STIMULI. REPOSITIONED TO RIGHT SIDE. BREATHING EASY.
--- NOTE | 2017-09-02 13:39 | NUR ---
PT IS RESTING SAFELY IN BED WITH CALL LIGHT IN REACH AND EYES CLOSED, RESPERATIONS EVEN.
--- NOTE | 2017-09-02 19:44 | NUR ---
RECIEVED REPORT FROM DAY SHIFT NURSE. PATIENT SLEEPING IN BED. PINTO CATHETER DRAINING WELL. MAG INFUSING W/O DIFFICULTY IN R ARM. NGT IN PLACE, NASAL CANNULA IN PLACE AT 2L/MIN. CALL LIGHT IN REACH.
--- NOTE | 2017-09-02 21:00 | NUR ---
REPOSITIONED PATIENT ON R SIDE. CHECKED FOR EPISODE OF STOOL INCONT, FOUND DRY. BOWEL SOUNDS HYPOACTIVE. NGT IN PLACE. LUNGS DIMINISHED, NASAL CANNULA IN PLACE AT 2L/MIN. PATIENT MORE DROWSY THAN SHE WAS LAST NIGHT. PATIENT UNABLE TO TELL ME WHEN HER BIRTHDAY IS. PATIENT DENIES PAIN. PINTO CATHETER DRAINING WELL. EMPTIED. FOAM DRESSING TO COCCYX C/D/I FOR PREVENTATIVE MEASURES. IV IN L ARM FLUSHED WITH 10CC NS. IVF INFUSING W/O DIFFICULTY. CALL LIGHT IN REACH.
--- NOTE | 2017-09-02 22:32 | NUR ---
PATIENT RESTING IN BED. VERY DORWSY BUT EASILY AROUSABLE. PATIENT STILL CANNOT TELL ME WHEN HER BIRTHDAY IS. SHE DOES SAY "YES" WHEN I ASK IF SHE IS COMFORTABLE AND "NO" IF I ASK IF SHE IS IN PAIN. ADMINISTERED NEB TX. ABX INFUSING W/O DIFFICULTY. NGT AND NASAL CANNULA IN PLACE. CALL LIGHT IN REACH.
--- NOTE | 2017-09-02 23:30 | NUR ---
REPOSITIONED PATIENT ON L SIDE. CHECKED FOR EPISODE OF INCONT., FOUND DRY. ABX INFUSING W/O DIFFICULTY. CALL LIGHT IN REACH.
--- NOTE | 2017-09-03 00:18 | NUR ---
PATIENT SLEEPING. IV ABX INFUSING W/O DIFFICULTY. CALL LIGHT IN REACH.
--- NOTE | 2017-09-03 02:15 | NUR ---
REPOSITIONED PATIENT ON R SIDE. PINTO CARE PERFORMED. PATIENT STILL EASILY AROUSABLE, BUT GOES RIGHT BACK TO SLEEP. WHEN ASKED IF SHE IS COMFORTABLE, PATIENT STATES, "YES." LUNGS ARE DIMINISHED, HR REGULAR, TRACE EDEMA NOTED. NGT AND NASAL CANNULA STILL IN PLACE. ABX ALMOST FINISHED INFUSING. CALL LIGHT IN REACH.
--- NOTE | 2017-09-03 04:02 | NUR ---
PATIENT SLEEPING ON R SIDE. NASAL CANNULA IN PLACE. NGT IN PLACE. CALL LIGHT IN REACH.
--- NOTE | 2017-09-03 04:30 | NUR ---
REPOSITIONED PATIENT ON L SIDE WITH ASSIST. BOOSTED PATIENT UP IN BED. VS OBTAINED. PINTO CATH DRAINING WELL. CHECKED FOR EPISODE OF INCONT., FOUND DRY. CALL LIGHT IN REACH.
--- NOTE | 2017-09-03 05:57 | NUR ---
PATIENT SLEEPING. PINTO EMPTIED. CALL LIGHT IN REACH.
--- NOTE | 2017-09-03 07:43 | NUR ---
RECIEVED BEDSIDE REPORT FROM RADHA PARSONS. PT SLEEPING, BREATHING EVEN AND UNLABORED. PT APPEARS COMFORTABLE. O2 IN PLACE AT 2L. IV IN PLACE.
--- NOTE | 2017-09-03 08:15 | NUR ---
THEODORE WAS LYING I BED, I INTORDUCED MYSELF AND TOLD HER I WOULD BE HER MERCHANT MILL UTILITY WORKER FOR THE DAY, SHE SAID SHE WASNT FEELING UP TO TRYING ANYTHIN PO FOR BREAKFAST, I REPORTED IT TO THE NURSE AND SHE SAID THAT IS FINE.
--- NOTE | 2017-09-03 10:22 | NUR ---
PATIENT WAS REPSOTIONED AND SHE DIDNT WANT ANYTHING OFF HER CLEARS TRAY, I DID HER VITAL SIGNSA AND TOLD HER I WOULD BE CHECKING ON HER SEEING IF SHE CHAGED MYRA, NURSE SAID IT WAS OKAY ANDER DIDNT TAKE ANYTHING BY MOUTH.
--- NOTE | 2017-09-03 10:30 | NUR ---
GAVE PT MEDS VIA NG TUBE. PT MUCH MORE ALERT AT THIS TIME. PT DECLINED BREAKFAST, DENIES PAIN. ALL BELONGINGS WITHIN REACH. NO CONCERNS AT THIS TIME.
--- NOTE | 2017-09-03 15:36 | NUR ---
PATIENT IS IN BED AND ALERT, SHE IS RESPONDING AND USING THE SUCTION, I GAVE HER CHAPSTICK
--- NOTE | 2017-09-03 15:58 | NUR ---
REPOSITIONED PT, MOVED UP IN BED AND TURNED. PT INSTRUCTED ON USE OF THE SUCTION FOR SECRETIONS. CONTINUE TO REINFORCE. PT AWAKE AND ALERT.
--- NOTE | 2017-09-03 17:18 | NUR ---
PT TOOK MEDS ORALLY WITH SMALL BITES OF APPLESAUCE. PT TOLERATED WELL. SON IN ROOM ASSISTED WITH AN ENSURE DRINK. PT DRANK SMALL AMOUNT.
--- NOTE | 2017-09-03 17:42 | NUR ---
IN STORE DEMONSTRATOR COULD NOT GET AN ACCURATE BLOOD PRESSURE READING WITH THE MONITOR. RN TOOK PT'S BLOOD PRESSURE MANUALLY, BP WITHIN NORMAL WITH MANUAL BP. 128/82. USE SMALL CHILD CUFF.
--- NOTE | 2017-09-03 18:06 | NUR ---
PT MUCH MORE AWAKE AND ALERT THIS SHIFT. PT RESPONDS TO QUESTIONS, BUT NOT ALWAYS APROPREATLY. PT DRANK SMALL AMOUNT OF ENSURE AND ATE SMALL AMTS OF APPLESAUCE. PT TOOK JOANNA MEDS ORALLY.
--- NOTE | 2017-09-03 19:23 | NUR ---
RECIEVED REPORT FROM DAY SHIFT NURSE. PATIENT AWAKE IN BED. IVF INFUSING W/O DIFFICULTY. PATIENT DENIES NEEDS. CALL LIGHT IN REACH.
--- NOTE | 2017-09-03 19:45 | NUR ---
REPOSITIONED PATIENT ON L SIDE. CHECKED FOR EPISODE OF INCONT, PINTO LEAKING A SMALL AMOUNT AROUND INSERTION SITE, PINTO CARE/PERICARE COMPLETED WITH WET WIPES, CHANGED BRIEF. FOAM DRESSING TO COCCYX STILL INTACT. NO REDNESS NOTED ON BOTTOM. SKIN IS FRAGILE. FOAM DRESSING TO RLE C/D/I. SCABBED OVER SKIN TEAR NOTED ON LLE. PATIENT'S EXTREMETIES ECCHYMOTIC. LUNGS ARE DIMINISHED. MOIST CONGESTED COUGH NOTED. PATIENT ABLE TO BRING UP MINIMAL THICK SECRETIONS. SUCTION AT BEDSIDE. NO EDEMA NOTED. PATIENT DENIES PAIN. IVF INFUSING W/O DIFFICULTY. BOWEL SOUNDS HYPOACTIVE, MORE ACTIVE IN RLQ. CALL LIGHT IN REACH.
--- NOTE | 2017-09-03 21:41 | NUR ---
REPOSITIONED PATIENT ON R SIDE WITH ASSIST. BOOSTED UP IN BED. CHECKED FOR EPISODE OF INCONT, FOUND DRY. PINTO CATHETER DRAINING WELL. NASAL CANNULA AND NGT IN PLACE. PATIENT DENIES NEEDS. CALL LIGHT IN REACH.
--- NOTE | 2017-09-03 23:10 | NUR ---
PATIENT AWAKE IN BED. HYDRATION OFFERED AND GIVEN. PATIENT ABLE TO TAKE SMALL SIPS OF WATER WITHOUT DIFFICULTY, NO COUGH AFTER DRINKING. PATIENT SITTING UPRIGHT IN BED. SNACK OFFERED, PATIENT DECLINED. IV IN L ARM LEAKING, REMOVED, CATH INTACT. PATIENT DENIES FURTHER NEEDS. CALL LIGHT IN REACH.
--- NOTE | 2017-09-03 23:45 | NUR ---
REPOSITIONED PATIENT ON L SIDE. CHECKED FOR EPISODE OF INCONT, FOUND DRY. PINTO CATH DRAINING WELL. PATIENT ABLE TO DRINK ABOUT 100CC OF PROTEIN DRINK W/O DIFFICULTY. PATIENT DENIES FURTHER NEEDS. STATES SHE IS COMFORTABLE WHEN ASKED. CALL LIGHT IN REACH.
--- NOTE | 2017-09-04 00:37 | NUR ---
HELPED PTS RN REPOSITION HER IN BED. HER BEDSIDE TABLE AND CALL LIGHT IN REACH. SHE NEEDS NOTHING ELSE AT THIS TIME, WHEN ASKED.
--- NOTE | 2017-09-04 01:19 | NUR ---
PATIENT SLEEPING. NASAL CANNULA AND NGT IN PLACE. CALL LIGHT IN REACH.
--- NOTE | 2017-09-04 01:45 | NUR ---
REPOSITIONED PATIENT ON R SIDE. CHECKED FOR EPISODE OF INCONT, FOUND DRY. PINTO NOT LEAKING AT THIS POINT. PATIENT ALERT BUT ONLY ORIENTED TO SELF. HYDRATION OFFERED AND GIVEN. PATIENT ABLE TO SWALLOW W/O DIFFICULTY, SHE DOES GET MILDLY SOB AFTER DRINKING. NASAL CANNULA IN PLACE. LUNG SOUNDS DIMINISHED. MOIST COUGH NOTED. THICK SPUTUM IN SUCTION TUBING (ASSISTED WITH SUCTIONING AFTER PATIENT COUGHED). ENCOURAGED PATIENT TO COUGH. HR REGULAR, NO EDEMA. PINTO EMPTIED, PATIENT PUTTING OUT LARGE AMOUNTS OF URINE. PATIENT DENIES PAIN. CALL LIGHT IN REACH.
--- NOTE | 2017-09-04 03:51 | NUR ---
REPOSITIONED PATIENT ON L SIDE. CHECKED FOR EPISODE OF STOOL INCONT, FOUND DRY. IVF INFUSING W/O DIFFICULTY IN L ARM. NASAL CANNULA AND NGT IN PLACE. HYDRATION GIVEN. PATIENT HAS MOIST, WEAK COUGH. PATIENT STATES SHE IS COMFORTABLE. DENIES FURTHER NEEDS. CALL LIGHT IN REACH.
--- NOTE | 2017-09-04 04:46 | NUR ---
PATIENT MORE ALERT TONIGHT THAN SHE HAS BEEN. ABLE TO DRINK ALMOST HALF AN ENSURE THROUGHOUT THE NIGHT. NO COUGH AFTER DRINKING, BUT SHE DID GET MILDLY SOB AFTER DRINKING. COUGH IS VERY WEAK AND CONGESTED. SPEECH GARBLED MOST OF THE TIME. ABLE TO ANSWER SIMPLE YES/NO QUESTIONS. STILL NO BM. LAST BM ON 08/29. ROUTINE BOWEL ORDERS TODAY?
--- NOTE | 2017-09-04 06:02 | NUR ---
REPOSITIONED PATIENT ON R SIDE. IV LEAKING IN R FOREARM. REMOVED WITH CATH INTACT. REPLACED WITH #20 IN R UPPER ARM. PINTO EMPTIED. VS OBTAINED. HYDRATION OFFERED. CALL VILLEDA IN REACH.
--- NOTE | 2017-09-04 07:32 | NUR ---
report given from sera wilson. patient resting in bed. woke with report. patient reoriented when she woke. updated board.
--- NOTE | 2017-09-04 09:11 | NUR ---
bed bath done. assessment complete. patient has coarse cough. non productive. replaced aleven on coccyx. peralta cath care done. pillows under arms. lotion applied.
--- NOTE | 2017-09-04 09:58 | NUR ---
antibiotic finished. carlos ( son) in room now. patient is awake and alert. glsses in place. hob elevated.
--- NOTE | 2017-09-04 11:02 | NUR ---
turned to r side. peralta d/c'd per dr. nascimento new orders. titrated fluids. patient tolerated activity well. talked about advancing diet. patient not sure about food at this time. did not seem very interested. will atempt a full diet for lunch. bed in low position. call light within reach. son was in room for doctor rounds.
--- NOTE | 2017-09-04 12:02 | NUR ---
PATIENT ATTEMPTED TO TAKE BITES OF PUDDING. PATINET DID NOT TOLERATE. SUCTION. TOOK SIPS OF CLEARS WITHOUT PROBLEMS. PATIENT TOOK 2-3 SIPS OF BROTH AND STATED THAT SHE WAS DONE. PT IN ROOM TO ASSIST MOVING PATINET TO EDGE OF BED. PATIENT DID NOT TOLERATE AND MOVED HERSELF BACK TO BED. REPSOTIONED IN BED TO L SIDE.
--- NOTE | 2017-09-04 12:14 | NUR ---
RT IN ROOM. NEB GIVEN
--- NOTE | 2017-09-04 14:00 | NUR ---
patient worked with pt. patient did leg exercise in bed. tolerated well.
--- NOTE | 2017-09-04 14:50 | NUR ---
antibiotic started. patient changed attends. patinet had soaked through her bedding. changed attends. bedding changed. osmani care done. patient placed on l side. floated heels. patient refused tylenol at this time. asked if patient was having any pain. patient said no. oral care done.patient did not want anything to drink. asked if i could get her something else to drink besides insure. patient refused. curtain open in room. door closed
--- NOTE | 2017-09-04 17:14 | NUR ---
REPOSITIONED PATIENT. PATIENT SAT UP FOR DINNER. ATTEMPTED TO FEED PATIENT HER CLEAR. TAKING A COUPLE DRINKS OF ENDURE DRINK. PATIENT REFUSING ALL ELSE. DID AGREE TO TAKE A COUPLE BITES OF APPLE SAUCE. DID WELL WITH APPLE SAUCE NO COUGHING AFTER BITES. REMINDED TO TUCK HER CHIN. PATIENT TOOK TWO BITES AND REFUSED TO EAT ANYMORE. HOB LEFT ELEVATED. BED IN LOW POSITION. CHANGED ATTENDS. LARGE INCONT VOID. WITH SEVERAL VOIDS DURING CHANGE.
--- NOTE | 2017-09-04 17:31 | NUR ---
patients alert. oriented to self. was able to tell me where she was this morning. answers questions with yes and no answers. garbled speech at times. new order to advance diet as tolerated. attempted given patient pudding, but patient did not tolerate well. did fine with sips of clears. refusing more that just a couple bites of jello and sips of ensure. needing a lot of encouragment. note to call st tomorrow for another eval since the patient did not participate with assessment upon admit. voiding qs. peralta d/c'd. darrynnet is incont and is having a lot of urine output. repsotion q 2 hrs and attends changes. plan to go back to [facility] once ready for discharge.
--- NOTE | 2017-09-04 18:54 | NUR ---
patient repositioned in bed. changed wet attends. patient had tolerated change well. turning to her l side. call light within reach. bed in low postion.
--- NOTE | 2017-09-04 19:23 | NUR ---
RECIEVED REPORT FROM DAY SHIFT NURSE. PATIENT AWAKE IN BED ON L SIDE. NASAL CANNUL AND NGT IN PLACE. CALL LIGHT IN REACH.
--- NOTE | 2017-09-04 20:13 | NUR ---
RT IN ADMINISTERING NEB TX.
--- NOTE | 2017-09-04 21:24 | NUR ---
REPOSITIONED PATIENT ON R SIDE. CHANGED PATIENT FOR EPISODE OF URINARY INCONT. REMOVED FOAM DRESSING ON COCCYX. APPLIED BARRIER CREAM. REDNESS AND SMALL SCAB ON COCCYX. PATIENT'S LUNGS ARE DIMINISHED, HR REGULAR, NO EDEMA. NASAL CANNULA IN PLACE AT 2L/MIN. NGT IN PLACE. HYDRATION GIVEN. PATIENT WAS ABLE TO TAKE A FEW SIPS OF ENSURE. TOLERATED WELL SITTING UPRIGHT. LOOSE COUGH HEARD. SUCTION IN ROOM, PATIENT ABLE TO SUCTION HERSELF AT TIMES. PATIENT IS AWARE SHE IS IN [place] AND KNOWS HER BIRTHDAY. DENIES PAIN. CALL LIGHT IN REACH.
--- NOTE | 2017-09-04 21:33 | NUR ---
PROCEDURAL NURSE OBTAINING VS.
--- NOTE | 2017-09-04 22:51 | NUR ---
REPOSITIONED PATIENT ON L SIDE. BOOSTED UP IN BED. CHANGED PATIENT FOR EPISODE OF URINARY INCONT. PERICARE PERFORMED, BARRIER CREAM APPLIED. ASSISTED PATIENT WITH DRINKING. PATIENT ABLE TO TAKE A FEW SIPS OF WATER AND CHICKEN BROTH.
--- NOTE | 2017-09-04 23:10 | NUR ---
PATIENT C/O L SIDE FACIAL PAIN. TYLENOL ADMINISTERED THROUGH NGT. PATIENT DID HAVE SOME COUGHING AFTER PO FLUIDS GIVEN. CALL LIGHT IN REACH.
--- NOTE | 2017-09-05 00:10 | NUR ---
PATIENT STILL C/O FACIAL PAIN. CALLED MD. OBTAINED ORDER. ADMINISTERED MEDICATION THROUGH NGT. PATIENT HAS BEEN DROOLING ON PILLOW. CHANGED PILLOW CASE. PATIENT ON HER SIDE WITH CHUCKS ON PILLOWCASE. CALL LIGHT IN REACH.
--- NOTE | 2017-09-05 00:52 | NUR ---
REPOSITIONED PATIENT ON R SIDE. CHANGED PATIENT FOR EPISODE OF URINARY INCONT., YARI CARE PERFORMED, BARRIER CREAM APPLIED, BRIEF CHANGED. PATIENT STATES HER PAIN IS MUCH BETTER. IVF INFUSINGW/O DIFFICULTY. NASAL CANNULA AND NGT IN PLACE. CALL LIGHT IN REACH.
--- NOTE | 2017-09-05 02:45 | NUR ---
REPOSITIONED PATIENT ON L SIDE. CHANGED FOR EPISODE OF URINARY INCONT., PERICARE PERFORMED. NO C/O PAIN. CALL LIGHT IN REACH.
--- NOTE | 2017-09-05 03:39 | NUR ---
PATIENT SLEEPING. IVF INFUSING W/O DIFFICULTY. CALL LIGHT IN REACH.
--- NOTE | 2017-09-05 04:51 | NUR ---
REPOSITIONED PATIENT ON L SIDE. CHANGED FOR URINARY INCONT., PERICARE PERFORMED, APPLIED BARRIER CREAM. PATIENT DENIES PAIN. IVF INFUSING W/O DIFFICULTY. CALL LIGHT IN REACH.
--- NOTE | 2017-09-05 06:26 | NUR ---
REPOSITIONED PATIENT ON L SIDE. CHANGED PATIENT FOR EPISODE OF URINARY INCONT., PERICARE PERFORMED, BRIEF CHANGED. ABX INFUSING. PATIENT STATES SHE IS COMFORTABLE. NASAL CANNULA IN PLACE, NGT INPLACE. CALL LIGHT IN REACH.
--- NOTE | 2017-09-05 07:34 | NUR ---
REPORT RECIEVED FROM RADHA PARSONS. PT ASLEEP BUT SON IS IN CHAIR. PT WAS GIVEN ALL MEDS THROUGH NG TUBE LAST NIGHT SHE COULD NOT SWALLOW.
--- NOTE | 2017-09-05 08:47 | NUR ---
AWOKE PT FOR MORNING MEDS. PT ABLE TO TELL ME TOWN AND LOCATION AND BIRTHDAY. SLOW TO RESPOND AND FALLS BACK TO SLEEP QUICKLY. PT COULD NOT SUCK ON STRAW SO MORNING MEDS ADMINISTERED CRUSHED THROUGH NG TUBE. PT DEPENDS CHECKED, DRY ATT.
--- NOTE | 2017-09-05 08:49 | NUR ---
PT IN BED ASLEEP. TOOK PT BRK PT STATED SHE DID NOT WHAT TO EAT. LET NURSE KNOW.
--- NOTE | 2017-09-05 09:17 | NUR ---
TALKED TO DR GARNER ABOUT PT NOT SWALLOWING. VERBALY ORDERED A NEW SWALLOW STUDY AND WOULD LIKE ST TO WORK WITH PT.
--- NOTE | 2017-09-05 11:05 | NUR ---
CHANGED IV BAG AND HUNG AB. PT APPEARS TO BE SLEEPING AND INCOME TAX ADJUSTER HAS CHANGED DEPENDS AND POSITION IN BED. SPEECH EVAL. WILL READ REPORT WHEN AVAIL.
--- NOTE | 2017-09-05 12:36 | NUR ---
ASSISTED SIDING STAPLER. WITH GETTING PT UP TO CHAIR. PT WAS ABLE TO DO A 2 PERSON HEAVY PIVOT TO BEDSIDE CHAIR. PT DENIES CONCERNS. CHANGED DEPENDS AND STRAIGHTENED BEDDING. TAJ STILL IN ROOM.
--- NOTE | 2017-09-05 13:20 | NUR ---
RT CALLED RN IN ROOM. PT HAD SCOOTED SELF TO EDGE OF CHAIR FOOT. EXPLAINED TO PT THAT SHE IS NOT STRONG ENOUGH TO GET UP HERSELF AND TO CALL IF SHE NEEDS ANYTHING. ASSISTED RT SCOOTING PT BACK. PLACED CHAIR ALARM ON PT. EXPLAINED CALL LIGHT BUTTON AGAIN.
--- NOTE | 2017-09-05 13:58 | NUR ---
PT CALLED TO GET BACK INTO BED. ASSISTED WITH GAIT BELT TO PIVOT TRANSFER BACK TO BED. PT ABLE TO ASSIST WITH SCOOTING SELF HIGHER IN BED. IVF INFUSING. RAN A FEW MORE MLS OF AB IT STILL HAD SOME LEFT IN BAG.
--- NOTE | 2017-09-05 15:09 | NUR ---
PT DOING WELL. DID VITALS. PICKED UP ROOM. FRESH ICE WATER
--- NOTE | 2017-09-05 15:23 | NUR ---
CHANGED PT DEPENDS AND ROTATED POSITION. ADMINISTERED 50ML OF ENSURE CLEAR THROUGH FEEDING TUBE, FLUSHED WITH 10ML WATER. PT TOLERATED WELL.
--- NOTE | 2017-09-05 15:35 | NUR ---
PATIENT ORDERED TO RECEIVE TUBE FEEDING VIA NG TUBE USING JEVITY 1.2 FORMULA WHICH WE DON'T CURRENTLY HAVE ON THE SHELF. IT IS ORDERED AND SHOULD BE IN TOMORROW. WE DO HAVE JEVITY 1.5 FORMULA THOUGH. FOR JEVITY 1.2 CONTINUOUS FEED, STARTING RATE IS 25 ML/HR. HER GOAL RATE IS 50 ML/HR. THIS WILL PROVIDE 1440 CALORIES, 67 GM PROTEIN, AND 968 ML WATER. RECOMMEND ADVANCING RATE SLOWLY TO ASSESS TOLERANCE. CHECK MAGNESIUM, PHOSPHOURUS, GLUCOSE, AND POTASSIUM LABS TO ASSESS FOR REFEEDING SYNDROME.
--- NOTE | 2017-09-05 15:56 | NUR ---
AWA, PATIENT'S NURSE, WILL CHECK WITH DR. GARNER IF SHE IS OK WITH KEEPING THE FORMULA JEVITY 1.5. THEN HER GOAL RATE WILL BE 40 ML/HR WHICH WILL PROVIDE 1440 CALORIES, 61 GRAMS PROTEIN AND 730 ML WATER. CONSIDER ADDING 25 ML WATER EVERY 8 HOURS FOR TUBE PATENCY.
--- NOTE | 2017-09-05 16:08 | NUR ---
STARTED PT FEEDING IN NG TUBE. PT TOLERATING WELL. ASKED DR GARNER ABOUT 1.5 VS 1.2 JEVITY. SHE STATES THAT 1.5 IS FINE. WILL BUMP UP TO HIGHER INCREMENTS TOLERATED.
--- NOTE | 2017-09-05 17:38 | NUR ---
BUMPED TUBE FEEDING UP TO 35ML/HR, PT TOLERATING WELL.
--- NOTE | 2017-09-05 18:15 | NUR ---
PT STARTED ON TUBE FEEDING, INCREASE TO 60ML/HR TOLERATED. SAT UP IN CHAIR SEVERAL HOURS. DENIES PAIN OR SOB. PRODUCTIVE COUGH. NPO, DID NOT PASS SWALLOW EVAL.
--- NOTE | 2017-09-05 19:05 | NUR ---
RECEIVED REPORT FROM RN. PATIENT RESTING COMFORTABLY IN BED, BREATHING IS EVEN AND UNLABORED ON 2L O2 VIA NC. PATIENT DENIES NEEDS AT THIS TIME. FLUIDS RUNNING, TUBE FEEDING RUNNING 35ML/HR THROUGH NG TUBE. CALL LIGHT WITHIN REACH.
--- NOTE | 2017-09-05 20:10 | NUR ---
CHANGED PATIENT'S ATTENDS, YARI CARE PERFORMED. PATIENT DENIES NEEDS AT THIS TIME. ASSESSMENT DONE. BREATHING IS EVEN AND UNLABORED ON 2L O2 VIA NC. CALL LIGHT WITHIN REACH.
--- NOTE | 2017-09-05 21:00 | NUR ---
PATIENT RESTING COMFORTABLY IN BED, BREATHING IS EVEN AND UNLABORED ON 2L O2 VIA NC. MEDICATION GIVEN. DENIES NEEDS AT THIS TIME. CALL LIGHT WITHIN REACH.
--- NOTE | 2017-09-05 22:30 | NUR ---
PATIENT RESTING COMFORTABLY IN BED, BREATHING IS EVEN AND UNLABORED ON 2L O2 VIA NC. CALL LIGHT WITHIN REACH.
--- NOTE | 2017-09-05 23:30 | NUR ---
PATIENT RESTING COMFORTABLY IN BED, BREATHING EVEN AND UNLABORED. DENIES NEEDS AT THIS TIME. NEW CAN TUBE FEEDING ADDED TO NG PUMP. CALL LIGHT WITHIN REACH.
--- NOTE | 2017-09-06 02:14 | NUR ---
PATIENT RESTING COMFORTABLY IN BED, BREATHING IS EVEN AND UNLABORED ON 2L O2 VIA NC. CALL LIGHT WITHIN REACH.
--- NOTE | 2017-09-06 04:10 | NUR ---
PATIENT'S ATTENDS CHANGED, YARI CARE PERFORMED. APPLIED BARRIER CREAM TO BUTTOCKS. REDDENED AREA TO BUTTOCKS AND COCCYX IS BLANCHABLE. REPOSITIONED PATIENT FOR COMFORT. BREATHING IS EVEN AND UNLABORED ON 2L 02 VIA NC. DENIES NEEDS AT THIS TIME. ASSESSMENT DONE. CALL LIGHT WITHIN REACH.
--- NOTE | 2017-09-06 05:13 | NUR ---
PATIENT'S NIGHT WAS UNEVENTFUL. SHE HAS BEEN RESTING COMFORTABLY IN BED THROUGHOUT SHIFT. VSS, URINE OUTPUT QS. NO COMPLAINTS OF PAIN. PATIENT IS DISORIENTED TO TIME, ORIENTED TO SELF AND PLACE, SPEECH IS GARBLED. LLL OF LUNG HAS FINE CRACKLES, ALL OTHER LUNG YOUNG ARE CLEAR. REQUIRES 2L 02 TO MAINTAIN SATURATION >90%. BOWEL TONES ARE HYPOACTIVE. PATIENT IS INCONTINENT OF URINE, REQUIRES FREQUENT ATTENDS CHANGE AND YARI CARE. PATIENT HAS REDDENED AREAS ON BUTTOCKS AND COCCYX THAT ARE BLANCHABLE. Q2H TURN. PATIENT HAS EXTREME WEAKNESS, PATIENT IS BEDBOUND AND REQUIRES PIVOT TRANSFER TO [facility] IF NECESSARY. HAS IV FLUIDS RUNNING, PATIENT IS NPO AND IS RECEIVING CONTINUOUS TUBE FEEDING VIA NG TUBE. TOLERATING WELL, NO NAUSEA OR DYSPEPSIA. NO ACUTE CHANGES FROM BEGINNING OF SHIFT ASSESSMENT.
--- NOTE | 2017-09-06 05:52 | NUR ---
PATIENT RESTING COMFORTABLY IN BED, BREATHING IS EVEN AND UNLABORED. O2 SATURATION IS 98% ON 2L O2 VIA NC. DENIES NEEDS AT THIS TIME. NO NEED FOR ATTENDS CHANGE. VITALS AND I&O DONE. CALL LIGHT WITHIN REACH, SON AT BEDSIDE.
--- NOTE | 2017-09-06 06:30 | NUR ---
PATIENT RESTING COMFORTABLY IN BED, BREATHING IS EVEN AND UNLABORED ON 2L O2 VIA NC. DENIES NEEDS AT THIS TIME. ATTEND'S CHANGED, YARI CARE DONE. REPOSITIONED FOR COMFORT. CALL LIGHT WITHIN REACH.
--- NOTE | 2017-09-06 07:45 | NUR ---
REPORT FROM RADHA MOHAMUD. PT AWAKE WATCHING TV. STATES SHE SLEPT WELL LAST NIGHT AND DENIES PAIN. TUBE FEEDING INFUSING AT 35ML. PT TOLERATING WELL.
--- NOTE | 2017-09-06 08:44 | NUR ---
PT AWAKE AND WATCHING TV. CHANGED DEPENDS AND STRAIGHTENED BEDDING. SPILLED CRUSHED PILLS, CLEANED UP AND OBTAINED NEW ONES. ADMINISTERED THROUGH FEEDING TUBE WITHOUT DIFFICULTY. JEVITY RUNNING AT 45ML.
--- NOTE | 2017-09-06 09:50 | NUR ---
PATIENT IN ROOM WITH PATIENT FOR VITALS AND I&O'S.
--- NOTE | 2017-09-06 09:57 | NUR ---
ASSESSED PT VITALS. PT WOULD NOT TOLERATED ORAL TEMP PROBE SO DID AXILLARY. VS WNL. POTASIUM SUPP STARTED AB FINALLY FINISHED.
--- NOTE | 2017-09-06 10:25 | NUR ---
CALLED PT SON CINDY AT [phone], MESSAGE LEFT FOR HIM TO CALL BACK REGARDING SETTING UP A CARE CONFERENCE FOR MONDAY.
--- NOTE | 2017-09-06 11:48 | NUR ---
ASSISTED SENIOR JAVA SOFTWARE DEVELOPER. GETTING PT UP TO BEDSIDE CHAIR. PT WAS HEAVY TWO PERSON PIVOT WITH FWW. PT MORE FATIGUED THAN YESTERDAY. EXPLAINED TO PT THAT IT IS GOOD FOR HER LUNGS TO SIT UP IN HER CHAIR FOR AWHILE AND WE WILL PUT HER BACK TO BED SHORTLY. PT VERBALIZED HER UNDERSTANDING.
--- NOTE | 2017-09-06 12:02 | NUR ---
SPEECH THERAPY IN TO SEE PT.
--- NOTE | 2017-09-06 13:50 | NUR ---
RN IN ROOM WITH PATIENT.
--- NOTE | 2017-09-06 14:07 | NUR ---
PT SITTING UP IN BED, MUCH MORE ALERT THAN YESTERDAY. SHE SEEMED TO RECOGNIZE ME, AND ACKNOWLEDGED SHE WAS DOING BETTER. THEN SHE TOLD ME THAT "THIS HAS BEEN A LONG HAUL". I PRAYED FOR HER, SHE SMILED AND I TOLD HER THAT I WOULD LOOK AFTER HER SON AND MAKE HIM BEHAVE. SHE KIND OF CHUCKLED-SHE KNEW WHAT I WAS SAYING. WILL CONTINUE TO FOLLOW
--- NOTE | 2017-09-06 14:09 | NUR ---
ASSISTED PT WITH BALLISTICS EXPERT FORENSIC TO GET BACK INTO BED. PT TIRED AND READY FOR A NAP. AB STARTED. NG FEEDING AT 45 CONTINUOUS. CHANGED DEPENDS.
--- NOTE | 2017-09-06 15:00 | NUR ---
CARE CONFERENCE BRIEF IMPROMPTU CARE CONFERENCE IS BEING HELD WITH SON-CINDY, DR GARNER AND MYSELF. DISCUSSED HOW THE PT IS DOING AND THE FACT THAT THEY ARE GRADUALLY INCREASING THE AMT HOURLY UP TO 45 NOW. PT APPEARS TO BE TOLERATING THAT WELL. PT IS ALERT ENOUGH TO BE WATCHING TV AT THIS TIME AND APPROP NODDING HER HEAD TO SOME QUESTIONS. PT SON STATED THAT THE LAST TIME SHE HAD A NG TUBE SHE DID NOT TALK OR SWALLOW WHILE SHE HAD IT IN. ANOTHER CARE CONFERENCE IS SCHEDULED FOR MONDAY WHEN PT IS DONE WITH TAMIFLU AND TUBE CAN COME OUT AND SHE CAN BE REEVALUATED FOR SWALLOWING ABLILTY. PT CAN RETURN TO [facility] AFTER WE SEE HOW HER SWALLOW IS. MEETING WITH SON AND JOSE ON MONDAY AT 1300.
--- NOTE | 2017-09-06 16:37 | NUR ---
ADMINISTERED MEDS AND FLUSHED WITH 70MLS WATER. ADMINISTERED NEB TREATMENT RT IS BUSY. PT TOLERATED ALL WELL. PT DENIES CONCERNS.
--- NOTE | 2017-09-06 19:21 | NUR ---
RECEIVED REPORT FROM RN. PATIENT RESTING COMFORTABLY IN BED, BREATHING IS EVEN AND UNLABORED ON 2L O2 VIA NC. DENIES NEEDS AT THIS TIME. SON IS AT BEDSIDE. CALL LIGHT WITHIN REACH.
--- NOTE | 2017-09-06 21:40 | NUR ---
PATIENT RESTING COMFORTABLY IN BED, BREATHING IS EVEN AND UNLABORED. O2 SATURATION IS 98% ON 2L O2 VIA NC. DENIES NEEDS AT THIS TIME. NO NEED FOR ATTENDS CHANGE, PATIENT IS DRY. REPOSITIONED FOR COMFORT. ASSESSMENT DONE, MEDICATIONS GIVEN. CALL LIGHT WITHIN REACH.
--- NOTE | 2017-09-06 22:08 | NUR ---
PT VITALS AND I&OS DONE.
--- NOTE | 2017-09-07 00:46 | NUR ---
PATIENT RESTING COMFORTABLY IN BED, BREATHING IS EVEN AND UNLABORED ON 2L O2 VIA NC. DENIES NEEDS AT THIS TIME. ATTENDS CHANGED, YARI CARE DONE. REPOSITIONED PATIENT ON SIDE. CALL LIGHT WITHIN REACH.
--- NOTE | 2017-09-07 01:39 | NUR ---
HELPED PT'S RN CHANGE HER ATTEND, SHE WAS INCONTINENT OF URINE. REPOSITIONED HER IN BED. ASKED PT IF SHE NEEDED ANYTHING ELSE AT THIS TIME? SHE REPLIED NO. CALL LIGHT ON HER BED AND BEDSIDE TABLE WITHIN REACH.
--- NOTE | 2017-09-07 02:45 | NUR ---
PATIENT RESTING COMFORTABLY IN BED, BREATHING IS EVEN AND UNLABORED. CALL LIGHT WITHIN REACH.
--- NOTE | 2017-09-07 04:29 | NUR ---
VITALS AND I&OS DONE. BEDSIDE TABLE WIPED DOWN, GARBAGE EMPTIED. HELPED PTS RN CHANGE HER ATTEND. SHE WAS INCONTINENT OF URINE ONLY. CHARTED IN INTAKE AND OUTPUT. CALL LIGHT IN HER HAND AND BEDSIDE TABLE WITHIN REACH. ASKED IF SHE NEEDED ANYTHING? SHE SAID NO.
--- NOTE | 2017-09-07 04:31 | NUR ---
PATIENT RESTING COMFORTABLY IN BED, BREATHING IS EVEN AND UNLABORED. CHANGED ATTENDS, YARI CARE DONE. PATIENT DENIES NEEDS AT THIS TIME. ASSESSMENT DONE, CALL LIGHT WITHIN REACH.
--- NOTE | 2017-09-07 05:15 | NUR ---
PATIENT'S NIGHT WAS UNEVENTFUL. SHE HAS BEEN RESTING THROUGHOUT SHIFT. VSS, URINE OUTPUT QS. NO COMPLAINTS OF PAIN. PATIENT IS DISORIENTED TO TIME. LUNGS ARE CLEAR, HAS OCCASIONAL COUGH. REQUIRES 2L O2 TO KEEP SATURATIONS >90%. DUE TO PATIENT FAILED SPEECH EVALUATION, PATIENT IS NPO. HAS NG TUBE WITH CONTINUOUS NG TUBE FEEDING, PATIENT IS TOLERATING WELL W/O NAUSEA OR DYSPEPSIA. INCONTINENT AND REQUIRES FREQUENT ATTENDS CHANGES. COCCYX IS RED, BUT BLANCHABLE. FREQUENT POSITION CHANGES NEEDED. PATIENT IS BEDBOUND, PIVOT TRANSFER TO [facility]. HAS IV FLUIDS RUNNING. NO ACUTE CHANGES FROM BEGINNING OF SHIFT.
--- NOTE | 2017-09-07 09:00 | NUR ---
PATIENT ATTEND SATURATED WITH URINE, YARI CARE DONE. SOME REDNESS TO COCKYX, SKIN INTACT. BARRIER CREAM APPLIED. PATIENT SITTING UP IN RCLINER, TOLERATED ACTIVITY WELL, WITH MINIMAL SOB. PATIENT HAS LOOSE COUGH. APPEARS TO BE DROOLING FROM RIGHT SIDE OF MOUTH. PROVIDED ORAL CARE AND AM CARES. NO COMPLAINTS OF PAIN. CHANGED BAG FOR JEVITY FEEDING, TUBE FLUSHED WELL RUNNING AT 45ML/HR. PATIENT ON 2L NC, 93%. MEDS ADMINISTERED THROUG TUBE FEEDING. PATIENT VERBALIZED UNDERSTANDING. FULL BODY ASSESMENT DONE. LUNGS AUSCULATED, SOUNDS JUNKY AND COURSE THROUGHOUT.
--- NOTE | 2017-09-07 12:04 | NUR ---
PATIENT PARTICIPATED WITH PHYSICAL THERAPY, UP OUT OF BED. PATIENT NOW RESTING BACK IN BED. ADMINISTERED SCHEDULED TAMIFLU. NG FEEDING TUBE FLUSHED WELL.
--- NOTE | 2017-09-07 16:15 | NUR ---
PATIENT WORKED WITH PHYSICAL THERAPY, TOLERATED WELL. SITTING UP WATCHING TELEVISION. TUBE FEEDING WITH JEVITY CONITNIOUS AT 45ML/HR. VS STABLE. CONITNUES TO SOUND CONGESTED, WITH LOOSE COUGH.
--- NOTE | 2017-09-07 17:07 | NUR ---
[facility] STAFF CALLED TO CHECK ON PT AND I LET THEM KNOW WE ARE DOING A CARE CONFERECE ON HER AT 1300 TOMORROW SO IF THEY FEEL THEY NEED A BRUSH MACHINE SETTER THERE THEY HAVE THAT OPTION.
--- NOTE | 2017-09-07 19:20 | NUR ---
RECEIVED REPORT FROM RN. PATIENT RESTING COMFORTABLY IN BED, BREATHING IS EVEN AND UNLABORED. LAB CURRENTLY IN ROOM TO DRAW BLOOD, BUT WAS UNSUCCESSFUL. PATIENT HAS SKIN TEAR AFTER TOURNIQUET WAS APPLIED BY LAB, STERI STRIPS APPLIED. PATIENT DENIES NEEDS AT THIS TIME. CALL LIGHT WITHIN REACH.
--- NOTE | 2017-09-07 19:52 | NUR ---
Notified son Cecilio of swallow evalutation to be done in the morning at [address] Jarquin's request. Cecilio stated " I will be there, and for the care conference at 1:00."
--- NOTE | 2017-09-07 21:06 | NUR ---
HELPED CASEY JOSE GET PT BED CHANGED DUE TO URINE INCONTINENCE. CHANGED GOWN. BEDSIDE TABLE AT HER SIDE , CALL LIGHT BY HER HAND.
--- NOTE | 2017-09-07 22:14 | NUR ---
PATIENT RESTING COMFORTABLY IN BED, BREATHING IS EVEN AND UNLABORED. DENIES NEEDS AT THIS TIME. ASSESSMENT DONE, MEDICATION GIVEN. PATIENT'S IV REMOVED DUE TO LEAK AND POSSIBLE INFILTRATION. RADHA ROSEN SPOKE WITH DR. SHANE, HE STATED THAT PATIENT NEEDS NEW IV. CALL LIGHT WITHIN REACH.
--- NOTE | 2017-09-08 00:21 | NUR ---
PATIENT RESTING COMFORTABLY IN BED, BREATHING IS EVEN AND UNLABORED. DENIES NEEDS AT THIS TIME. ATTENDS CHANGED FOR COMFORT, REPOSITIONED PATIENT. ALLOVENT DRESSING APPLIED TO COCCYX FOR OPEN SORE. NEW IV STARTED BY CONCRETE CURER RADHA ROSEN. CALL LIGHT WITHIN REACH.
--- NOTE | 2017-09-08 03:07 | NUR ---
PATIENT RESTING COMFORTABLY IN BED, BREATHING IS EVEN AND UNLABORED. DENIES NEEDS AT THIS TIME. ATTENDS CHANGED, YARI CARE DONE. REPOSITIONED PATIENT ON SIDE. ASSESSMENT DONE. CALL LIGHT WITHIN REACH.
--- NOTE | 2017-09-08 05:44 | NUR ---
PATIENT RESTING COMFORTABLY IN BED, BREATHING IS EVEN AND UNLABORED. CALL LIGHT WITHIN REACH.
--- NOTE | 2017-09-08 08:09 | NUR ---
PATIENT SLEEPING. HOB ELEVATED 30 DEGREES, FEEDING TUBE RUNNING AT 45ML/HR. IV FLUID RUNNING WNL. PATIENT HAS [address] LUNGS CLEAR AND DIMINISHED.
--- NOTE | 2017-09-08 08:23 | NUR ---
STOPPED TUBE FEEDING. FLUSHED WITH WATER (10ML FLUSH). MEDS DILUTED IN WATER. FLUSHED IN FEEDING TUBE. FLUSHED WITH WATER ( 10MLS FLUSHED). PATIENT HOB ELEVATED. TOLERATED MEDICATION AND D/C OF NG FEEDING TUBE. FEEDING TUBE WAS INTACT. DRIED BLOOD AND DRAINGE ON END OF TUBE. RADHA DUMONT IN ROOM. REPORT GIVEN AT BEDSIDE.
[2017-09-08] MEDS ORDERED: CARBAMAZEPINE200 M2 PO (12:33)
[2017-09-08] MEDS ORDERED: IPRAT-ALBUT 0.5-3 ML INH ×2 (12:34→12:35)
[2017-09-08] MEDS ORDERED: MIRALAX17 GM PO (12:35)
--- NOTE | 2017-09-08 13:17 | NUR ---
FAXED ORDERS AND PASRR TO [facility].
--- NOTE | 2017-09-08 13:30 | NUR ---
RECIEVED A PHONE CALL FROM RAUL AT [facility] STATING THEY WILL BE SENDING SOMEONE TO SOCK EXAMINER PT IN A FEW MINUTES, DR SHANE STATES THAT HE TALKED WITH THE PT SON ALREADY.
--- NOTE | 2017-09-08 14:34 | NUR ---
VISITED WITH PT'S SON CINDY. HE WAS COMING FOR CONF. TO ASSESS HIS MOM'S CONDITION. HE REMAIN'S GUARDEDLY OPTIMISTIC. HE MENTIONED THAT SHE MAY GO TO [facility]. WILL FOLLOW NEEDED
== END 2017-09-08 13:47 | DRG 193 ==
LOC: ED 09:28 → MS 11:30
PROVIDERS: ADMIT Internal Medicine
DX: J10.08 Influenza due to other identified influenza virus with other specified pneumonia (principal); G93.41 Metabolic encephalopathy; E43 Unspecified severe protein-calorie malnutrition; J96.11 Chronic respiratory failure with hypoxia; Z68.1 Body mass index [BMI] 19.9 or less, adult; J12.89 Other viral pneumonia; J44.9 Chronic obstructive pulmonary disease, unspecified; J15.9 Unspecified bacterial pneumonia; I69.320 Aphasia following cerebral infarction; E87.6 Hypokalemia; G50.0 Trigeminal neuralgia; E83.42 Hypomagnesemia; E83.39 Other disorders of phosphorus metabolism; Z66 Do not resuscitate; Z79.02 Long term (current) use of antithrombotics/antiplatelets; Z79.899 Other long term (current) drug therapy; Z88.1 Allergy status to other antibiotic agents; Z88.8 Allergy status to other drugs, medicaments and biological substances
CPT/HCPCS: 36415; 70450; 71010; 71045; 80048; 80053; 80069; 80156; 81001; 83605; 83735; 85025; 87040; 87449; 87502; 87899; 92526; 92610; 94640; 94760; 94762; 97110; 97140; 97161; 97530; G8978; G8979; J1650; J1956; J2405; J2543; J3475; J3480; J7030; J7060; J7120

== ENCOUNTER 2017-12-12 20:10 | Emergency (ER) | payer MEDICARE ==
[~2017-12-12] VITALS: Ht 167.6 cm; Wt 38.1 kg
[~2017-12-12 20:10] MED LIST changes: +ACETAMINOPHEN500 M4 PO; +COLACE100 MG PO; +DULCOLAX10 MG PR; +FLEET ENEMA133 ML PR; +IPRAT-ALBUT 0.5-3 ML INH; +MILK OF MA400 MG/5 M PO; +PLAVIX75 MG PO; +ZOFRAN4 MG PO; +[UNRECOGNIZED DRUG - REMARK] BUCCAL
[2017-12-12] MEDS ORDERED: BREO ELLIPTA I1 EACH INH (21:24)
[2017-12-12] MEDS ORDERED: BUSPIRONE HCL15 MG PO (21:26)
[2017-12-12] MEDS ORDERED: NEURONTIN300 MG PO (21:28)
[2017-12-12] MEDS ORDERED: LEVAQUIN500 MG PO (22:10)
--- NOTE | 2017-12-14 07:01 | EKG ---
[facility] [address] [place] [address] Signed Sinus tachycardia with occasional premature ventricular complexes Biatrial enlargement Right axis deviation Pulmonary disease pattern T wave abnormality, consider inferior ischemia Abnormal ECG When compared with ECG of 04-AUG-2017 17:00, premature ventricular complexes are now present Vent. rate has increased BY 38 BPM Confirmed by HARIKA GARNER MD ([id number]) on 12/14/2017 7:01:08 AM Electronically Signed By: HARIKA GARNER MD 12/14/17 0701 PATIENT NAME: ANDREA PATEL Electrocardiogram DATE OF : 34 PHYSICIAN: HARIKA GARNER MD REPORT #: [id number] REPORT IS CONFIDENTIAL AND NOT TO BE RELEASED WITHOUT AUTHORIZATION
== END 2017-12-12 22:35 | disposition home or self-care (01) ==
LOC: ED 20:10
DX: J44.0 Chronic obstructive pulmonary disease with (acute) lower respiratory infection (principal); J20.9 Acute bronchitis, unspecified; Z87.891 Personal history of nicotine dependence; Z88.1 Allergy status to other antibiotic agents; Z88.8 Allergy status to other drugs, medicaments and biological substances; Z79.899 Other long term (current) drug therapy
CPT/HCPCS: 71045; 80053; 83880; 85025; 93005; 93010; 96374; 99283; J2930; J7030

== ENCOUNTER 2018-09-18 23:43 | Emergency (ER) | payer MEDICARE, OTHER ==
[~2018-09-18] VITALS: Ht 167.6 cm; Wt 38.1 kg
[~2018-09-18 23:43] MED LIST changes: +BREO ELLIPTA I1 EACH INH; +BUSPIRONE HCL15 MG PO; +LEVAQUIN500 MG PO; +NEURONTIN300 MG PO
== END 2018-09-19 01:30 | disposition home or self-care (01) ==
LOC: ED 23:43
DX: R55 Syncope and collapse (principal); J44.9 Chronic obstructive pulmonary disease, unspecified; G50.0 Trigeminal neuralgia; Z87.891 Personal history of nicotine dependence; Z89.429 Acquired absence of other toe(s), unspecified side; Z90.710 Acquired absence of both cervix and uterus; Z88.1 Allergy status to other antibiotic agents; Z88.8 Allergy status to other drugs, medicaments and biological substances; Z79.899 Other long term (current) drug therapy
CPT/HCPCS: 99284

== ENCOUNTER 2018-11-05 22:09 | Inpatient (IN) | payer MEDICARE, OTHER ==
[~2018-11-05] VITALS: Ht 167.6 cm; Wt 46.1 kg
[~2018-11-05 22:09] MED LIST changes: -ACETAMINOPHEN500 M4 PO; +ACETAMINOPHEN500 MG PO; -CALCIUM + VITA1 EACH PO; +CALCIUM 600 +1 EAC3 PO; +ONDANSETRON ODT4 MG PO; -ZOFRAN4 MG PO
--- NOTE | 2018-11-06 01:40 | NUR ---
PT ADMISSION ASSESSMENT COMPLETE. PT DISORIENTED TO ALL. DOES NOT ANSWER QUESTIONS APPROPRIATELY. PT DENIES PAIN, NAUSEA, AND SOB. NO NONVERBAL S/SX PRESENT. O2 IN PLACE @ 4LPM VIA OXY MASK. BT'S ACTIVE. ABD NONTENDER NG TUBE IN PLACE WITH BROWN DRAINAGE IN TUBING, CONNECTED TO LIWS AT THIS TIME. PT HAS SCATTERED/MULTPILE BRUISES. ATTENDS IN PLACE FOR INCONTINENCE, DRY AT THIS TIME. BEDALARM ACTIVE. CALL LIGHT IN REACH.
--- NOTE | 2018-11-06 02:30 | NUR ---
PER DESIGN ASSISTANT, NG TUBE TO BE ADVANCED. TUBE ADVANCED, PT TOLERATED OK. CXR REDONE. OK TO USE PER DESIGN ASSISTANT.
--- NOTE | 2018-11-06 03:17 | NUR ---
PER XRAY REPORT, NG TUBE WITHIN THE STOMACH.
--- NOTE | 2018-11-06 04:41 | NUR ---
PT RESTING IN BED WITH EYES CLOSED. RESPIRATIONS EVEN AND UNLABORED. SA02 91%. PT APPEARS TO BE SLEEPING. CALL LIGHT IN REACH, BED ALARM ACTIVE.
--- NOTE | 2018-11-06 06:02 | NUR ---
PT ASSESSMENT COMPLETE. PT RESTING IN BED AWAKE. PT DENIES PAIN, NAUSEA, SOB. NO NONVERBAL S/SX PRESENT. PT DISORIENTED TO ALL, ANSWERS QUESTIONS INAPPROPRIATELY. O2 IN PLACE 4 LPM VIA OXY MASK, SAO2 97%. LUNG SOUNDS COARSE THROUGHOUT. NO COUGH NOTED. NG TUBE IN PLACE, DRAINING BROWN LIQUID. BT'S ACTIVE. ABD DISTENDED. NO TENDERNESS NOTED WITH ABD PALPATION. ATTENDS IN PLACE FOR INCONTINENCE. BED ALARM ACTIVE. CALL LIGHT IN REACH.
--- NOTE | 2018-11-06 08:07 | NUR ---
PT AWAKE, ALERT AND ORIENTED X2. PT IS PLEASANT WITH AM ASSESSMENT. PT IS ON 4L OXYMASK, SAT LEVEL IS 96% AT THIS TIME. NG TO RIGHT NARE, SUCTION PATENT AND WORKING APPROPRIATELY. LIS; DARK BROWN DRAINAGE NOTED IN CANISTER. PT HAS + BT THROUGHOUT ABDOMEN, TENDER TO TOUCH NOTED IN RLQ. PERSONAL SUPPLIES AND CALL LIGHT WITHIN REACH. BED ALARM INTACT. PT DENIES NEEDS.
[2018-11-06] MEDS ORDERED: CARBAMAZEPINE300 MG PO (08:59)
[2018-11-06] MEDS ORDERED: PAXIL20 MG PO (09:04)
[2018-11-06] MEDS ORDERED: REMERON15 MG PO (09:06)
[2018-11-06] MEDS ORDERED: TYLENOL325 MG PO (09:07)
--- NOTE | 2018-11-06 09:07 | NUR ---
MED REC COMPLETE
--- NOTE | 2018-11-06 09:51 | NUR ---
PATIENT IN BED. O VOID RN NOTIFIED. CALL LIGHT IN REACH. NO FURTHER NEEDS AT THIS TIME.
--- NOTE | 2018-11-06 11:09 | NUR ---
PT PARTIALLY PULLED OUT NG TUBE, APPROX 6". DR. PEACOCK NOTIFED. ORDER GIVEN FROM HIM TO READVANCE NG BACK TO PREVIOUS MARKED SPOT. NG ADVANCED AT THIS TIME; PT TOLERATED WELL. OXYGEN SATTURATION MAINTAINED 92-95% ON 4L PER NC. PT IS CONFUSED. XRAYS ORDERED FOR PLACEMENT VERIFICATION PER DOC ORDER. WILL ATTACH SUCTION POST XRAY READING.
--- NOTE | 2018-11-06 12:03 | NUR ---
Pt has not voided yet this shift. Bladder scanned pt; volume noted at 187ml. Pt declines need to void. Will update provider.
--- NOTE | 2018-11-06 12:31 | NUR ---
NG PLACED BACK TO SUCTION. CLEARED BY HERMAN.
--- NOTE | 2018-11-06 12:47 | NUR ---
Spoke with Dr. Hussein regarding no urine output as of yet this shift for pt. Bladder scan volume is 187ml at this time. Order to infuse LR over four hours.
--- NOTE | 2018-11-06 14:26 | NUR ---
PT PLEASANT, SEEMS TO BE COPING WITH NG TUBE. AT TIMES DISORIENTED, BUT VERY PLEASANT. HER SON HAS BEEN BY 2 TIMES, BUT SHE STATED THAT SHE HASN'T SEEN HIM IN A LONG TIME. PT REQUESTED PRAYER, WILL FOLLOW NEEDED
--- NOTE | 2018-11-06 15:19 | NUR ---
PATIENT IN BED WATCHING TV. DEPENDS CHANGED. YARI CARE DONE. CALL LIGHT IN REACH. NO FURTHER NEEDS AT THIS TIME.
--- NOTE | 2018-11-06 16:51 | CONS ---
[facility] [address] [place], [place] [address] Signed DATE OF CONSULTATION: 11/06/2018 CHIEF COMPLAINT: Nausea, vomiting. HISTORY OF PRESENT ILLNESS: Ms. Jacobs is an 88-year-old debilitated female from [facility]. For a couple hours, she was noticed to have abdominal distention with nausea and vomiting. Consequently, she was brought to our local emergency room for evaluation. In the emergency room, she does not appear particularly ill, but certainly her abdomen was distended and moderately firm. White count was slightly borderline at 11.3. CT scan showed dilated small bowel with fluid in the esophagus, stomach, and all the way down to the proximal ileum. The distal ileum seems to be decompressed. Consequently, there was a concern for small-bowel obstruction, most likely from adhesions. She also has a right inguinal hernia with small bowel, but there is no obstruction there. She also has a small 3.4 mm abdominal aortic aneurysm. Of course, she has peripheral arterial disease, particularly involving the iliac arteries. I was asked to admit her overnight. An NG tube was placed. She had return of dark bilious fluid. Overnight, she has done fine. Her son came in for few minutes, but had to go to work. We did talk for a short time. PAST MEDICAL HISTORY: Dementia, a stroke which affected her speech back in 2017, COPD, possible myocardial infarction, trigeminal neuralgia, and an L1 compression fracture. PAST SURGICAL HISTORY: Bowel resection, appendectomy, cholecystectomy, total hysterectomy, and a toe amputation. SOCIAL HISTORY: She quit smoking. She does not drink. She resides at [facility]. She is a DNR/DNI with a POLST form on our chart. Dr. Jesus Zavala is her primary care provider. She prefers the [facility]. Her son, Cecilio Patel, is her [id number] at [phone]. FAMILY HISTORY: Unable to review. REVIEW OF SYSTEMS: I reviewed mainly the chart as Arlene is not able answer in that regard. ALLERGIES: Cymbalta, erythromycin base, promethazine, and pregabalin. MEDICATIONS: Electronically Signed By: LEE HUSSEIN MD 11/06/18 1656 PATIENT NAME: ARLENE PATEL CONSULTATION DATE OF : 34 REPORT #: [id number] PHYSICIAN: LEE HUSSEIN MD PCP: NO PRIMARY CARE PHYSICIAN REPORT IS CONFIDENTIAL AND NOT TO BE RELEASED WITHOUT AUTHORIZATION [facility] [address] [place], [place] [address] Signed Ipratropium/albuterol, carbamazepine, MiraLAX, Levaquin, atorvastatin, multivitamin, calcium, vitamin D, Tylenol, Colace, Dulcolax, Fleet's enemas, magnesium oxide, Plavix, Zofran, Breo, and gabapentin. PHYSICAL EXAMINATION: VITAL SIGNS: Blood pressure 122/79, heart rate 95, respiratory rate 20, temperature is 97.7. She is 92% to 100% on oxygen. She is 5 feet 6 inches tall, 46 kg. GENERAL: Arlene is an 88-year-old female, who is lying supine in her hospital bed. She is alert, awake, and interactive. She answers, but she is demented. LUNGS: Generally clear to auscultation bilaterally. HEART: Regular rate and rhythm. ABDOMEN: Moderately distended and moderately firm, but nontender. There are no peritoneal signs or symptoms. She says she has no pain. LABORATORY DATA: Her white blood cell count is 11.3, her hemoglobin is 11, neutrophils are 87. Her BUN is 26, creatinine 0.7, glucose 125. Urinalysis was negative. Liver function tests are negative. Her albumin is 3.7. RADIOGRAPHIC STUDIES: Her chest x-ray shows clear lungs with an NG tube in her stomach. CT scan of abdomen and pelvis shows dilated fluid-filled small bowel from the esophagus, stomach, all the way down to proximal ileum; however, the distal ileum seems to be decompressed. There is a right inguinal hernia containing small bowel, but there is no obstruction at that point. She has a 3.4 mm abdominal aortic aneurysm. She also has quite a bit of calcifications in her arteries including the iliac arteries. ASSESSMENT AND PLAN: Arlene is an 88-year-old female, who presents with a small bowel obstruction. Her son told me this has happened before. We are going to start obviously with conservative treatment. We will see how things go. He did talk with me about the fact that she is a DNR/DNI. We will also have a hospitalist see her for her medical evaluation and management as well. Arlene and her son expressed understanding and agreed to above plan. Lee Hussein MD ALB/MODL /[id number] Electronically Signed By: LEE HUSSEIN MD 11/06/18 1651 PATIENT NAME: ARLENE PATEL CONSULTATION DATE OF : 34 REPORT #: [id number] PHYSICIAN: LEE HUSSEIN MD PCP: NO PRIMARY CARE PHYSICIAN REPORT IS CONFIDENTIAL AND NOT TO BE RELEASED WITHOUT AUTHORIZATION [facility] [address] [place] [address] Signed cc: MD Lee Vieyra MD Copies: JESUS ZAVALA MD, ANDREW L MD ~ Electronically Signed By: LEE HUSSEIN MD 11/06/18 1651 PATIENT NAME: ARLENE PATEL CONSULTATION DATE OF : 34 REPORT #: [id number] PHYSICIAN: LEE HUSSEIN MD PCP: NO PRIMARY CARE PHYSICIAN REPORT IS CONFIDENTIAL AND NOT TO BE RELEASED WITHOUT AUTHORIZATION
--- NOTE | 2018-11-06 19:40 | NUR ---
RECIEVED BEDSIDE REPORT FROM MCKAY GARCIA. PATINET RESTING AWAKE IN BED. 4L VIA NC. NG TUBE DRAINING LIGHT GREEN DRAINAGE AND SET AT INTERMITTENT SUCTIONING. ATTENDS IN PLACE. SCDS IN PLACE. IV FLUIDS INFUSING PER MAR ORDER. WHITE BOARD UPDATED. BED ALARM ON FOR SAFETY. NO MORE NEEDS AT THIS TIME. CPOX, WNL.
--- NOTE | 2018-11-06 20:40 | NUR ---
ROUNDED ON PATIENT TO ADMINISTER SCHEDULED MEDICATIONS. IV IN LEFT AC FOUND TO BE LEAKING. PLAN TO PLACE NEW IV. BED ALARM ON FOR SAFETY. PATIENT DENIES HAVING PAIN.
--- NOTE | 2018-11-06 21:43 | EKG ---
[facility] [address] [facility] [place] [address] Signed Normal sinus rhythm Normal ECG When compared with ECG of 12-DEC-2017 20:19, premature ventricular complexes are no longer present QRS axis shifted left QRS voltage has decreased Nonspecific T wave abnormality has replaced inverted T waves in Inferior leads T wave amplitude has decreased in Lateral leads Confirmed by FENG SHARP DO ([id number]) on 11/06/2018 9:43:15 PM Electronically Signed By: FENG SHARP DO 11/06/18 2143 PATIENT NAME: AMANDAANDREA Electrocardiogram DATE OF : 34 PHYSICIAN: FENG SAHRP DO REPORT #: [id number] REPORT IS CONFIDENTIAL AND NOT TO BE RELEASED WITHOUT AUTHORIZATION
--- NOTE | 2018-11-06 21:45 | NUR ---
RENATE IN ROOM AT THIS TIME ATTMPTIMG TO PLACE NEW IV.
--- NOTE | 2018-11-06 22:30 | NUR ---
ASSESSMENT COMPLETE, REFER TO ASSESSMENT. NG TUBE APPEARED TO NOT BE FUNCTIONING PROPERLY, FLUSHED WITH 30ML OF WATER, NG TUBE AT LWIS, NG TUBE APPEARS TO BE FUNCTIONING PROPERLY AFTER INTERVENTIONS. LIGHT GREEN DRAINAGE DRAINING FROM NG. PATIENT DENIES PAIN, NAUSEA, CHEST PAIN, SOB, OR DIFFICULTY BREATHING. PATIENT CONFUSED, PT ORIENTED TO PATIENT DATE OF , REORIENT PRN. SCDS IN PLACE. CPOX, WNL. OXYMASK IN PLACE. CALL LIGHT WITHIN REACH. NO MORE NEEDS AT THIS TIME. IV FLUIDS INFUSING PER MAR ORDER. IS AT BEDSIDE.
--- NOTE | 2018-11-06 22:44 | NUR ---
NEW IV STARTED BY RN. PATIENT TOLERATED ACTIVITY WELL. IV INFUSING PER ORDER.
--- NOTE | 2018-11-06 23:06 | NUR ---
THIS RN AND ENDOCRINOLOGY TEACHER REPOSITIONED PATIENT AND CHANGED PATIENT ATTENDS. BED ALARM ON FOR SAFETY. NO MORE NEEDS AT THIS TIME.
--- NOTE | 2018-11-07 02:13 | NUR ---
rounded on patient resting in bed, awake. patient reports "10/10" pain in left jaw. prn pain medication provided. new bag of iv fluids infusing per mar order. bed alarm on for safety. no more needs at this time.
--- NOTE | 2018-11-07 02:44 | NUR ---
ROUNDED ON PATIENT RESTING AWAKE IN BED. MEDICATION ADMINSTRATION COMPLETE PER MAR ORDER. BED ALARM ON FOR SAFETY. NG APPEARS TO BE WORKING PROPERLY. BED ALARM ON FOR SAFETY. NO MORE NEEDS AT THIS TIME.
--- NOTE | 2018-11-07 04:29 | NUR ---
ROUNDED ON PATIENT RESTING IN BED WITH EYES CLOSED. RESPIRATORY RATE IS EVEN AND UNLABORED. CPOX, WNL. BED ALARM ON FOR SAFETY.
--- NOTE | 2018-11-07 05:59 | NUR ---
PT MOTIONED THIS NURSE TO HER ROOM, ABLE TO EXPRESS THAT HER LEFT JAW STILL HURTS, SHE RUBS THE LEFT JAW, SAYS I AM SORRY ITS A MESS. WHEN ASKED IF SHE HURTS SHE SAYS YES, AND RUBS JAW. MED WITH 0.5 MG DILAUDID IV.
--- NOTE | 2018-11-07 06:45 | NUR ---
ASSESSMENT COMPLETE, REFER TO ASSESSMENT. MEDICATION ADMINISTERED PER NOV ORDER. CNAS IN ROOM CHANGING PATIENT ATTENDS AND REPOSTIONING PATIENT IN BED. SCD IN PLACE. NG TUBE DRAINING, DARK GREEN COLORED FLUID ON LOW INTERMITTENT SUCTIONING, APPEARS TO BE FUNCTIONING PROPERLY. OXY MASK IN PLACE, CPOX WNL. PATIENT CONFUSED TO DATE AND PLACE, REORIENT PRN. BED ALARM ON FOR SAFETY. NO MORE NEEDS AT THIS TIME.
--- NOTE | 2018-11-07 07:20 | NUR ---
Rec'd bedside report. Pt. lying in bed and awake. Pt. responded to to questions appropriately.
--- NOTE | 2018-11-07 07:31 | NUR ---
Pt sleeping at this time. Pt os on 2L oxygen at this time, o2 sat level is 100%. Personal supplies and call light within reach. Bed alarm intact. Close to RN station.
--- NOTE | 2018-11-07 08:45 | NUR ---
Pt. lying in bed awake.Pt.'s O2 mask off-O2 SATS 84%. Placed massk back on Pt. with clinical instructor. Pt.'s O2 increased to normal levels, 96%. Pt. unaware that she had removed mask. Pt. educated re: mask use.
--- NOTE | 2018-11-07 08:55 | NUR ---
PATIENT SAYS LATER SHE WOULD WANT A SHOWER AND THAT SHE DOESNT WANT TO GET UP RIGHT NOW.
--- NOTE | 2018-11-07 09:40 | NUR ---
Pt. lying in bed awake. Am IV meds given. IV patent, flushes without difficulty. Placed fall risk band on PT. Notified nurse of band and door sign. Pt. reportss no issues when asked.
--- NOTE | 2018-11-07 10:10 | NUR ---
PT RESTING IN BED WITH O2 MASK ON. STILL BRIGHT EYED AND SMILING. SN IN TO DO VS. WILL CHECK BACK LATER
--- NOTE | 2018-11-07 11:00 | NUR ---
Checked on Pt. Pt. sitting in chair. Pt. reports no issues when asked. Call light within reach.
--- NOTE | 2018-11-07 11:15 | NUR ---
Pt. pulled nasal canula out. Placed NC back on pt. Pt. educated re: nasal cannula. Pt. sitting in chair. Pt. reports no issues when asked. Call light within reach.
--- NOTE | 2018-11-07 11:42 | NUR ---
ADMIN DILAUDID 1MG IVP FOR REPORTS OF 3/10 LEFT FACIAL/JAW PAIN. PT UP IN CHAIR AT THIS TIME. CHAIR ALARM INTACT. CALL LIGHT WITHIN REACH OF PT. NO NEEDS AT THIS TIME. PERSONAL SUPPLIES AND CALL LIGHT WITHIN REACH.
--- NOTE | 2018-11-07 13:45 | NUR ---
Pt. lying in bed sleeping, respirations even and unlabored. Easily awakened with verebal stimuli.IV meds given. O2 Decreased to 2L per NC, SAT 100%. Call light within reach.
--- NOTE | 2018-11-07 16:03 | NUR ---
PT UP IN CHAIR FOR GOOD PORTION OF THIS AFTERNOON. PT WALKED ABOUT IN ROOM WITH 2P ASSIST WITH WALKER. SON AT BEDSIDE. PT REPORTING PAIN IN LEFT LOWER JAW REGION; CHRONIC. NG LIS, PATENT LINE, BROWN DRAINAGE NOTED IN CANISTER. PERSONAL SUPPLIES AND CALL LIGHT WITHIN REACH.
--- NOTE | 2018-11-07 18:18 | NUR ---
PT CONFUSED. BED ALARM INTACT. D5 LR @75ML/HR. NPO. NG TO LIS. 2P ASSIST TO CHAIR, PIVOT.
--- NOTE | 2018-11-08 03:51 | NUR ---
ROUNDED ON PATIENT RESTING IN BED WITH EYES CLOSED, RESPIRATORY RATE IS EVEN AND UNLABORED. IV FLUIDS INFUSING PER MAR ORDER. CPOX, WNL. NG TUBE APPEARS TO BE FUNCTIONING WNL ON LWIS. BED ALARM ON FOR SAFETY. CALL LIGHT WITHIN REACH.
--- NOTE | 2018-11-08 04:20 | NUR ---
PATIENT PULLED NG TUBE OUT AROUND 0410 AFTER ANOTHER RN ATTEMPTED TO STOP PATIENT FROM DOING SO. THIS RN CLEANED PATIENT'S NOSE AND PATIENT STATED "YES" WHEN ASKED IF NOSE WAS SORE. DR. PEACOCK AWARE, NO NEW ORDERS.
--- NOTE | 2018-11-08 05:22 | NUR ---
PATIENT RESTED ON AND OFF THROUGHOUT THE NIGHT. IV FLUIDS INFUSING PER NOV ORDER. IV ABX PER ORDER. BED ALARM FOR SAFETY. 2L VIA NC. SCDs IN PLACE. INCONTINENT, ATTENDS IN PLACE. PATIENT PULLED NG TUBE OUT THIS SHIFT, MD AWARE. PATIENT CONFUSED, REORIENT PRN. PRN PAIN MEDICATION X2.
--- NOTE | 2018-11-08 06:30 | NUR ---
CALLED IMAGING WITH A HEADS UP DR. PEACOCK JUST ORDERED A SMALL BOWEL SERIES ON THIS PATIENT.
--- NOTE | 2018-11-08 06:44 | NUR ---
rounded on patient for scheduled medication administration. patient resting awake in bed. bed alarm on for safety. no more needs at this time.
--- NOTE | 2018-11-08 07:09 | NUR ---
Pt resting supine in bed, alert to person and place but confused to situation, date/time. Pt reoriented, call light and h20 in reach. Pt denies further needs/concerns. bedside report received from RADHA Arroyo. Pt agrees to Reyna Burciaga assisting in her care.
--- NOTE | 2018-11-08 09:15 | NUR ---
Pt resting supine in bed with hob elevated. Pt assessment completed. Call light and h20 in reach. Pt denies sob on 2lpnc, respirations even and unlabored. IV maintenance fluids continue to infuse. Pt given moist toothettes for comfort and denies further needs/concerns. Bed alarm on and pt remains in view of nursing station.
--- NOTE | 2018-11-08 09:35 | NUR ---
ENTERED PT ROOM FOR BED BATH. PERFORMED BED BATH AND SKIN CARE. PT REFUSED SHAMPOO CAP. PT TOLERATED BED BATH WELL AND DOES NOT COMPLAIN OF ANY PAIN OR DIFFICULTY BREATHING AT THIS TIME. BED ALARM AND NON SKID SOCKS ARE ON. SCDS ARE ON. CALL LIGHT WITHIN REACH AND PT WAS PROMPTED NOT TO GET UP WITHOUT ASSISTANCE. LEFT ROOM WITH PT LAYING IN BED WANTING TO REST.
--- NOTE | 2018-11-08 10:40 | NUR ---
PATIENT RESTING IN BED. ATTENDS CHANGED. TWO PERSON ASSISTING. I&O DONE. CALL LIGHT WITHIN REACH. BED ALARM ON. NO OTHER NEEDS AT THIS TIME
--- NOTE | 2018-11-08 11:27 | NUR ---
ENTERED PT ROOM FOR VITALS, FOCUSSED ASSESSMENTS AND INSERTING A NEW IV. PT TOLERATED VITALS, ASSESSMENTS AND IV INSERTION. PT DOES NOT COMPLAIN OF PAIN OR DIFFICULTY BREATHING AT THIS TIME. ENCOURAGED PT TO DO DEEP BREATHING AND GET REST. PT LEFT LAYING IN BED, RESTING. BED ALARM ON, NON SKID SOCKS APPLIED, PERSONAL ITEMS WITHIN REACH, IV FLUIDS RUNNING, AND PROMPTED NOT TO GET UP WITHOUT ASSISTANCE.
--- NOTE | 2018-11-08 12:55 | NUR ---
Pt assisted up to ambulate in halls with 2pa and fww on 2lpnc. PT walked to PT doorway from room 111 before reporting that shee was feeling tired and needed to sit down. Pt's o2 sat desatting to 83% on 2lpns and hr 130. o2 increased to 3lpnc and pt assisted back to bed via WC. Pt's BP found to be 86/58, hr 108 and o2 sat 94% on 2lpnc in bed. MD notified, per MD will recheck BP in 15minutes. Call light in reach and bed alarm on.
--- NOTE | 2018-11-08 13:08 | NUR ---
NOTICED IMAGING STAFF IN TRYING TO GET PT TO DRINK BERIUM. WAS ABLE TO HELP GET SOME OF IT DOWN, MUCH TO PT'S DISLIKE.WILL CONTINUE TO FOLLOW NEEDED
--- NOTE | 2018-11-08 13:10 | NUR ---
pt's bp rechecked and is now 114/58 (72) hr 97, o2 desatting to 89% on 2lpns so increased to 3lpnc. O2 sat now 90% on 3lpnc. bed alarm on and pt remains in view of nursing station.
--- NOTE | 2018-11-08 13:35 | NUR ---
DR PEACOCK NOTIFIED OF PT'S LARGE BM AND OF PT'S DESAT WITH AMBULATION AND LOW BP THAT RESOLVED AFTER BEING RECHECKED. SMALL BOWEL FOLLOW THROUGH RESUILTS NOT YET BACK. DR PEACOCK WOULD LIKE TO BE NOTIFIED WHEN RESULTS ARE BACK. RENEE IN IMAGING AGREES TO NOTIFY HEAT TREATING OPERATOR WHEN RESULTS ARE IN.
--- NOTE | 2018-11-08 15:04 | NUR ---
Pt resting supine in bed watching tv. Pt denies SOB or pain. Assessment completed. pt satting 96% on 3lpnc. Call light and h20 in reach. No needs voiced and pt appears to be resting comfortably. Moistened toothetes provided and pt assisted in applying chapstick.
--- NOTE | 2018-11-08 16:04 | NUR ---
dr loyd notified of results of small bowel follow through. Per MD maintenance fluids will be reduced to 55ml/hr and pt will be started on full liquid diet and will advance as tolerated.
--- NOTE | 2018-11-08 16:29 | NUR ---
Pt sitting up eating dinner full liquid tray. Pt denies nausea and appears to be tolerating diet thus far. Call light and h2o in reach. Family updated on POC.
--- NOTE | 2018-11-08 17:34 | NUR ---
ENTERED PT ROOM TO ASSIST VENDOR REPRESENTATIVES IN CLEANING UP PT BM ACCIDENT. CHANGED PT BRIEF, GOWN, AND PERFORMED A LINNEN CHANGE. AFTER CLEANING THE PT, TRANSFERRED PT TO CHAIR. CHAIR ALARM IS ON, NON SKID SOCKS ARE ON, AND CALL LIGHT IS WITHIN REACH. PT SON IS PRESENT. PT TOLERATED INTERVENTIONS WELL WITHOUT COMPLAINTS OF PAIN, SOB OR DIFFICULTY BREATHING.
--- NOTE | 2018-11-08 18:32 | NUR ---
PATIENT SITTING UP IN CHAIR. SON IN ROOM. RN IN ROOM. PATIENT BACKS TO BED. TWO PERSON ASSISTING. BED ALARM ON. I&O DONE. VITAL SIGNS DONE BY STUDENT RN. CALL LIGHT WITHIN REACH. NO OTHER NEEDS AT THIS TIME
--- NOTE | 2018-11-08 18:40 | NUR ---
ENTERED PT ROOM TO PERFORM END OF SHIFT ASSESSMENT. PT IS LAYING IN BED WITH SON AT BEDSIDE. PT ATTENDS IS DRY AT THIS TIME. PT DOES NOT COMPLAIN OF PAIN, SHORTNESS OF BREATH OR DIFFICULTY BREATHING AT THIS TIME. PT TOLERATED ASSESSMENT WELL. BED IS IN LOCKED AND LOWERED POSITION, BED ALARM IS ON, NON SKID SOCKS APPLIED, SCD'S ON, AND CALL LIGHT WITHIN REACH. PROMPTED PT AND SON NOT TO LET PT GET UP WITHOUT ASSISTANCE.
--- NOTE | 2018-11-08 18:58 | NUR ---
PT RESTING SUPINE in bed, states she is comfortable and denies pain. o2 at 3lpnc anmd o2 sat 98%, rr 16 hr 75. Pt watching tv. pm medication administered. 2 warm blankets provided. pt denies furhter needs. Fall juli in place, bed alarm on. SCD's in place. Call light and h20 in reach. pt states "this is the best [facility] all you people are so caring". maintenance fluids continue to infuse at 50ml/hr. bed alarm in place.
--- NOTE | 2018-11-08 19:00 | NUR ---
SHIFT REPORT RECEIVED FROM DAYSHIFT RADHA BENÍTEZ. PT ON CPOX, O2 SAT AND HR WNL. PT RESTING IN BED, EYES CLOSED. RR EVEN AND UNLABORED. PT APPEARS COMFORTABLE. PT AWOKE DURING REPORT, DENIED NEEDS. CALL LIGHT IN REACH. BED ALARM ON FOR SAFETY.
--- NOTE | 2018-11-08 20:10 | NUR ---
PULSEOX WAS BEEPING, PT HAD REMOVED O2. IT IS BACK IN PLACE AND 02 SAT HAS IMPROVED. PT DENIED FURTHER NEEDS.
--- NOTE | 2018-11-08 20:50 | NUR ---
ASSESSMENT COMPLETE. SCHEDULED MEDICATIONS GIVEN (SEE EMAR). PT A/O ONLY PARTIALLY TO SELF. THIS RN NOTIFIED IN SHIFT REPORT BY JEYSON GARCIA THAT PT IS "PLEASANTLY CONFUSED AT BASELINE". PT CIOMPLIANT WITH CARE. SPEECH DIFFICULT TO UNDERSTAND AT TIMES, HX STROKE IN 2017 PER SHIFT REPORT. IV FLUIDS INFUSING PER MD ORDERS, SITE WNL. PT DENIES PAIN AT THIS TIME. CALL LIGHT IN REACH, BED ALARM ON FOR SAFETY.
--- NOTE | 2018-11-08 20:50 | NUR ---
THIS RN IN ROOM AFTER HEARING PT YELLING "HELP". PT VERBALIZES NEED TO VOID. PT INCONTINENT OF URINE AND SMALL BM. WITH HELP FROM CASEY DECEMBER, YARI CARE COMPLETE, PT REPOSITIONED. PT INSTRUCTED ON USE OF CALL LIGHT IF HELP FROM NURSING STAFF IS NEEDED, PT VERBALIZES UNDERSTANDING. NO FURTHER NEEDS, CALL LIGHT IN REACH.
--- NOTE | 2018-11-08 21:05 | NUR ---
VITALS AND I&OS DONE AND CHARTED. CHANGED PT'S ATTEND INCONTINENT OF URINE. BEDSIDE TABLE AND CALL LIGHT IN REACH.
--- NOTE | 2018-11-08 21:32 | NUR ---
PT'S PULSEOX WAS BEEPING AND O2 SAT WAS 78%. SHE WAS BREATHING THROUGH HER MOUTH. SWITCHED NC TO OXYMASK AT 3.5 L AND SHE IS NOW 90% O2 SAT. CALL LIGHT IS CLOSE AND BED ALARM IS ON.
--- NOTE | 2018-11-09 00:47 | NUR ---
O2 ALARM GOING OFF. THIS RN AND ETHNIC STUDIES PROFESSOR IN ROOM TO ASSESS. O2 SAT MID TO UPPER 80'S. PT PLACED ON 4L OXYMASK BY ETHNIC STUDIES PROFESSOR ELISEO. O2 SAT MAINTAINING IN 90'S. CALL LIGHT IN REACH.
--- NOTE | 2018-11-09 02:30 | NUR ---
scheduled iv abx infusing, site wnl. pt resting in bed, eyes closed, rr even and unlabored. pt appears comfortable, audible snoring noted. pt on 4l oxymask, o2 sat 100%, o2 titrated down to 3l oxymask. call light in reach.
--- NOTE | 2018-11-09 04:35 | NUR ---
PT HAD AN OKAY NIGHT, FINALLY RESTED DURING SECOND HALF OF SHIFT. VSS, CPOX IN PLACE W/ OXYMASK 3-4L. RIGHT ARM RESTRICTED. PT A/O ONLY TO SELF, SPEECH GARBELED DUE TO STROKE IN 2017. PT/OT ORDERS, 2PA W/ FWW. NO NAUSEA THIS SHIFT, BOWEL TONES ACTIVE. D5LR AT 50 MLS/HR. SCHEDULED IV ABX. CALL LIGHT ON FOR SAFETY.
--- NOTE | 2018-11-09 05:45 | NUR ---
PT INCONTINENT OF STOOL AND URINE. YARI CARE COMPLETE, NEW LINEN CHANGE ALSO DONE. PT VERY DROWSY, EASY TO AWAKEN MONMENTARILLY, BUT THEN QUICKLY FALLS BACK ASLEEP. AGRICULTURE TEACHER HARMAN IN ROOM WITH THIS RN TO ASSESS PT. NO REDDNESS OR EXCESSIVE PINK NOTED W/ SKIN COLOR. UNABLE TO ADMINISTER SCHEDULED CARBATROL AT THIS TIME, PT TOO DROWSY TO AWAKEN ENOUGH TO TAKE PILL OR SIP ON WATER. ENGROSSER AT NURSES STATION, ALSO VIEWED THE PT. THE PT RANG THE CALL LIGHT MULTIPLE TIMES, DID NOT SLEEP VERY MUCH FIRST HALF OF SHIFT. ENGROSSER STATED, "SHE LOOKS LIKE A TIRED OLD LADY. IF SHE RANG THE CALL LIGHT MUCH YOU SAY SHE DID,I THINK SHE'S FINE". O2 SAT 100% ON 4L OXYMASK, MAINTAINED 100% ON 2-3L. PT CURRENTLY PUT ON RA. WILL MONITOR.
--- NOTE | 2018-11-09 06:08 | NUR ---
PT'S PULSEOX WAS BEEPING. SHE WAS BREATHING THROUGH HER MOUTH. PUT OXYMASK BACK ON HER AT 3LNC TO KEEP HER O2 AT 89%. SHE IS RESTING WITH EYES CLOSED, RESPIRATIONS ARE EVEN AND NONLABORED.
--- NOTE | 2018-11-09 06:13 | NUR ---
PT'S O2 INCREASED TO 96%, TURNED OXYMASK BACK DOWN TO 1.5L.
--- NOTE | 2018-11-09 07:05 | NUR ---
PT RESTING SUPINE IN BED, EYES CLOSED, AND RESPIRATIONS EVEN AND UNLABORED. PT APPEARS TO BE SLEEPING COMFORTABLY O2 SAT 96% ON 2LPER OXY MASK. CALL LIGHT AND H20 IN REACH AND BED ALARM ON.
--- NOTE | 2018-11-09 08:27 | NUR ---
MD in to see patient, pt resting supine in bed, eyes closed and respirations even and unlabored. Pt alert to voice and states "I havent been able to get any good sleep in a while". Pt then closes eyes and appears to proceed to sleep comfortably, RR 16 on 2 lpnc.
--- NOTE | 2018-11-09 08:54 | NUR ---
RECEIVED REPORT FROM NIGHT NURSE, PT IS CURRENTLY SLEEPING WITH DEEP, REGULAR AND UNLABORED BREATHING. AUDIBLE SNORING PRESENT. PERFORMED MORNING ASSESSMENT. PT SAT 100% ON 2L02 VIA OXYMASK, TURNED DOWN TO 1LO2 VIA OXYMASK AND CURRENTLY SATTING AT 97% WHILE SLEEPING. BEGAN IV ABX AND WILL RETURN FOR MORNING MEDS WHEN PT IS LESS DROWSY. FALL PAD BESIDE BED, CALL LIGHT WITHIN REACH, SCD'S ON AND NON SKID SOCKS APPLIED.
--- NOTE | 2018-11-09 10:32 | NUR ---
PT DESAT TO 76% ON 2L NC WITH PATIENT MOVING FROM CHAIR TO BED. APPLIED OXMASK ON 3L PT SAT AT 100% WHILE LAYING IN BED. TITRATED TO 2L NOW SATTING AT 100% RESTING IN BED COMFORTABLY. PREPARING PT FOR DISCHARGE. CALL LIGHT WITHIN REACH, FALL PAD NEXT TO BED, NON SKID SOCKS APPLIED.
--- NOTE | 2018-11-09 10:40 | NUR ---
PATIENT RESTING SUPINE IN BED, O2 AND HR FLUCTUATING WIDELYT ON FINGER, PT DENIES ANY SYMPTOMS SO PROBE PLACED ON FOREHEAD. O2 SAT 100% ON 2LPER OXY MASK AND HR IN 70'S, RR 16. CALL LIGHT AND H2O IN REACH.
--- NOTE | 2018-11-09 10:56 | NUR ---
PT ASSISTED UP TO WC WITH 2PA AND FWW, PT LEAVES MS FLOOR. VSS ON 2LPNC SATTING 98% WITH RR 16. DISCHARGE EDUCATION PROVIDED AND REPORT TO BE CALLED TO RECEIVING SARA GARCIA.
--- NOTE | 2018-11-09 12:42 | NUR ---
PT ON WAY OUT TO WBT, SAID GOOD BY, AND SHE SMILED AND JUST MUMBLED. GOD BLESS HER.
== END 2018-11-09 10:55 | DRG 389 ==
LOC: ED 22:09 → MS 22:10 → ED 11-06 00:22 → MS 11-06 00:22
PROVIDERS: ADMIT Colon & Rectal Surgery
DX: K56.609 Unspecified intestinal obstruction, unspecified as to partial versus complete obstruction (principal); J96.11 Chronic respiratory failure with hypoxia; J44.9 Chronic obstructive pulmonary disease, unspecified; F03.90 Unspecified dementia, unspecified severity, without behavioral disturbance, psychotic disturbance, mood disturbance, and anxiety; I69.328 Other speech and language deficits following cerebral infarction; Z87.891 Personal history of nicotine dependence; Z66 Do not resuscitate; Z79.02 Long term (current) use of antithrombotics/antiplatelets; Z79.51 Long term (current) use of inhaled steroids; Z99.81 Dependence on supplemental oxygen; Z79.899 Other long term (current) drug therapy; Z88.1 Allergy status to other antibiotic agents; Z88.8 Allergy status to other drugs, medicaments and biological substances
CPT/HCPCS: 36415; 71045; 74177; 74250; 80048; 80053; 81001; 83690; 83735; 83880; 84100; 84134; 85025; 93005; 93010; 94640; 94762; 97116; 97162; 97530; 99285-25; C9113; J0696; J1170; J1644; J2405; J7120; Q9967

== ENCOUNTER 2018-11-15 20:11 | Emergency (ER) | payer MEDICARE, OTHER ==
[~2018-11-15] VITALS: Ht 167.6 cm; Wt 46.2 kg
[~2018-11-15 20:11] MED LIST changes: +CARBAMAZEPINE300 MG PO; +PAXIL20 MG PO; +REMERON15 MG PO; +TYLENOL325 MG PO
--- OUTSIDE RECORDS SUMMARY | 2018-11-15 20:14 | XMS ---
PreManage Notification: ANDREA PATEL Security Steel Rigger Events No recent Security Events currently on file CRITERIA MET - [facility] - 2 Visits in 30 Days CARE PROVIDERS Radha Herzog Uptwist Spinner/Coal Grader 11/02/2017-Current PHONE: [phone] Radha Herzog Primary Care 11/02/2017-Current PHONE: [phone] Chilo has no Care Guidelines for this patient. E[place]le VISIT COUNT (12 MO.) [address] [place] [address] TOTAL 4 NOTE: Visits indicate total known visits. ED/UCC VISIT TRACKING (12 MO.) 11/15/2018 20:12 [facility] [place] TYPE: Emergency COMPLAINT: - FALL 11/05/2018 22:09 [facility] [place] TYPE: Emergency COMPLAINT: - SBO 09/18/2018 23:44 [facility] [place] TYPE: Emergency COMPLAINT: - MULTIPLE COMPLAINTS DIAGNOSES: - Acquired absence of other toe(s), unspecified side - Syncope and collapse - Other half-way (current) drug therapy - Chronic obstructive pulmonary disease, unspecified - Trigeminal neuralgia - Allergy status to other drugs, medicaments and biological substances status - Weakness - Acquired absence of both cervix and uterus - Allergy status to other antibiotic agents status - Personal history of nicotine dependence 12/12/2017 20:10 [facility] [place] TYPE: Emergency COMPLAINT: - LOW OXYGEN LEVELS DIAGNOSES: - Shortness of breath - Acute bronchitis, unspecified - Allergy status to other drugs, medicaments and biological substances status - Chronic obstructive pulmonary disease with acute lower respiratory infection - Other half-way (current) drug therapy - Allergy status to other antibiotic agents status - Personal history of nicotine dependence INPATIENT VISIT TRACKING (12 MO.) 11/06/2018 06:37 [facility] [place] TYPE: Medical Surgical COMPLAINT: - SBO DIAGNOSES: - Personal history of nicotine dependence - [facility] (current) use of antithrombotics/antiplatelets - Chronic respiratory failure with hypoxia - 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 - Do not resuscitate - Allergy status to other drugs, medicaments and biological substances status - Unspecified dementia without behavioral disturbance - 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 - Allergy status to other antibiotic agents status - Chronic obstructive pulmonary disease, unspecified - Chronic obstructive pulmonary disease, unspecified - Dependence on supplemental oxygen - Personal history of nicotine dependence - Other half-way (current) drug therapy - Allergy status to other antibiotic agents status - [facility] (current) use of inhaled steroids - Allergy status to other drugs, medicaments and biological substances status - Unspecified dementia without behavioral disturbance - Other half-way (current) drug therapy - Do not resuscitate - Chronic respiratory failure with hypoxia - intermediate teacher (current) use of antithrombotics/antiplatelets - Dependence on supplemental oxygen - Unspecified intestinal obstruction, unspecified as to partial versus complete obstruction - [facility] (current) use of inhaled steroids [email or web address]
== END 2018-11-16 01:17 | disposition short-term general hospital (02) ==
LOC: ED 20:11
PROC: 0T9B70Z Drainage of Bladder with Drainage Device, Via Natural or Artificial Opening (ICD-10-PCS; principal; 2018-11-15)
DX: S72.142A Displaced intertrochanteric fracture of left femur, initial encounter for closed fracture (principal); S00.83XA Contusion of other part of head, initial encounter; J44.9 Chronic obstructive pulmonary disease, unspecified; G50.0 Trigeminal neuralgia; Z87.891 Personal history of nicotine dependence; Z90.49 Acquired absence of other specified parts of digestive tract; Z90.710 Acquired absence of both cervix and uterus; Z89.429 Acquired absence of other toe(s), unspecified side; Z88.1 Allergy status to other antibiotic agents; Z88.8 Allergy status to other drugs, medicaments and biological substances; Z79.899 Other long term (current) drug therapy; W06.XXXA Fall from bed, initial encounter
CPT/HCPCS: 51702; 71045; 73502; 80053; 85025; 99284-25; J3010

== ENCOUNTER 2020-04-13 11:06 | Emergency (ER) | payer MEDICARE, OTHER ==
[~2020-04-13] VITALS: Ht 167.6 cm; Wt 45.8 kg
--- OUTSIDE RECORDS SUMMARY | 2020-04-13 11:08 | XMS ---
PreManage Notification: ANDREA PATEL Security Regional Construction Manager Events No recent Security Events currently on file CRITERIA MET - PDMP CARE PROVIDERS Name Unknown Intermediate Facility Current PHONE: [phone] Radha Herzog Music Instructor/Electrical Tester 11/02/2017-Current PHONE: [phone] [facility] 11/16/2018-Current PHONE: [phone] Chilo has no Care Guidelines for this patient. E.D. VISIT COUNT (12 MO.) 1 [facility] TOTAL 1 NOTE: Visits indicate total known visits. ED/UCC VISIT TRACKING (12 MO.) 04/13/2020 11:06 [facility] [place] TYPE: Emergency COMPLAINT: - BREATHING PROBLEM INPATIENT VISIT TRACKING (12 MO.) No inpatient visits to display in this time frame [email or web address]
[2020-04-13] MEDS ORDERED: FERROUS GLUCON324 M1 (11:29)
[2020-04-13] MEDS ORDERED: MONTELUKAST SOD10 MG PO (11:30)
[2020-04-13] MEDS ORDERED: PAXIL10 MG PO (11:30)
[2020-04-13] MEDS ORDERED: REMERON15 MG PO (11:31)
[2020-04-13] MEDS ORDERED: SENNA8.6 MG PO (11:33)
[2020-04-13] MEDS ORDERED: VENTOLIN HFA18 GM INH (11:34)
--- NOTE | 2020-04-13 12:18 | EKG ---
[facility] [address] [facility] [place] [address] Signed Sinus bradycardia Otherwise normal ECG No previous ECGs available Confirmed by ARRON SHANE MD ([id number]) on 04/13/2020 12:18:37 PM Electronically Signed By: ARRON SHANE MD 04/13/20 1218 PATIENT NAME: ANDREA PATEL Electrocardiogram DATE OF : 34 PHYSICIAN: ARRON SHANE MD REPORT #: [id number] REPORT IS CONFIDENTIAL AND NOT TO BE RELEASED WITHOUT AUTHORIZATION
== END 2020-04-13 13:30 | disposition home or self-care (01) ==
LOC: ED 11:06
DX: Z00.00 Encounter for general adult medical examination without abnormal findings (principal); J44.9 Chronic obstructive pulmonary disease, unspecified; Z87.891 Personal history of nicotine dependence; Z88.1 Allergy status to other antibiotic agents; Z88.8 Allergy status to other drugs, medicaments and biological substances; Z79.899 Other long term (current) drug therapy
CPT/HCPCS: 71045; 80053; 83735; 83880; 84484; 85025; 93005; 93010; 99284-25

== ENCOUNTER 2020-05-13 09:05 | Emergency (ER) | payer MEDICARE, OTHER ==
[~2020-05-13] VITALS: Ht 167.6 cm; Wt 46.2 kg
[~2020-05-13 09:05] MED LIST changes: +FERROUS GLUCON324 M1; +MONTELUKAST SOD10 MG PO; +PAXIL10 MG PO; +SENNA8.6 MG PO; +VENTOLIN HFA18 GM INH
--- OUTSIDE RECORDS SUMMARY | 2020-05-13 09:08 | XMS ---
PreManage Notification: ANDREA PATEL Security Press Room Supervisor Events No recent Security Events currently on file CRITERIA MET - [facility] - [facility] - 2 Visits in 30 Days CARE PROVIDERS Name Unknown [facility] Facility Current PHONE: [phone] Radha Herzog Director Of Safety And Security/Staff Development Manager 11/02/2017-Current PHONE: [phone] ARIANA [facility] 11/16/2018-Current PHONE: [phone] Chilo has no Care Guidelines for this patient. E.D. VISIT COUNT (12 MO.) 2 [facility] TOTAL 2 NOTE: Visits indicate total known visits. ED/UCC VISIT TRACKING (12 MO.) 05/13/2020 09:05 [facility] [place] TYPE: Emergency COMPLAINT: - BLOOD PRESSURE PROBLEM, VOMITING 04/13/2020 11:06 [facility] [place] TYPE: Emergency COMPLAINT: - BREATHING PROBLEM DIAGNOSES: - Chronic obstructive pulmonary disease, unspecified - Allergy status to other drugs, medicaments and biological sub - Personal history of nicotine dependence - Encounter for general adult medical examination without abnor - Other terminal gauger supervisor (current) drug therapy - Allergy status to other antibiotic agents status - Encounter for general adult medical examination without abnor INPATIENT VISIT TRACKING (12 MO.) No inpatient visits to display in this time frame [email or web address]
[2020-05-13] MEDS ORDERED: KEFLEX500 MG PO (13:16)
== END 2020-05-13 13:34 | disposition home or self-care (01) ==
LOC: ED 09:05
DX: N39.0 Urinary tract infection, site not specified (principal); J44.9 Chronic obstructive pulmonary disease, unspecified; F03.90 Unspecified dementia, unspecified severity, without behavioral disturbance, psychotic disturbance, mood disturbance, and anxiety; Z87.891 Personal history of nicotine dependence; Z88.1 Allergy status to other antibiotic agents; Z88.8 Allergy status to other drugs, medicaments and biological substances; Z79.899 Other long term (current) drug therapy; Z79.01 Long term (current) use of anticoagulants
CPT/HCPCS: 71045; 80053; 80156; 81001; 84484; 85025; 96361; 96365; 99285-25; J0696; J7040

== ENCOUNTER 2020-06-20 21:21 | Inpatient (IN) | payer MEDICARE, OTHER ==
[~2020-06-20] VITALS: Ht 167.6 cm; Wt 43.1 kg
[~2020-06-20 21:21] MED LIST changes: -CALCIUM 600 +1 EAC3 PO; +KEFLEX500 MG PO; +SENNA PLUS 8.61 EACH PO; -SENNA8.6 MG PO; +TUMS200 MG PO
--- OUTSIDE RECORDS SUMMARY | 2020-06-20 21:24 | XMS ---
PreManage Notification: ANDREA PATEL Security Corporate Human Resources Manager Events No recent Security Events currently on file CRITERIA MET - PDMP CARE PROVIDERS Name Unknown Custodial Facility Current PHONE: [phone] Radha Herzog Uc Architect/Dyer Helper 11/02/2017-Current PHONE: [phone] ARIANA [facility] 11/16/2018-Current PHONE: [phone] Chilo has no Care Guidelines for this patient. E.D. VISIT COUNT (12 MO.) 3 [facility] TOTAL 3 NOTE: Visits indicate total known visits. ED/UCC VISIT TRACKING (12 MO.) 06/20/2020 21:21 [facility] [place] TYPE: Emergency COMPLAINT: - RESPIRATORY DISTRESS 05/13/2020 09:05 [facility] [place] TYPE: Emergency COMPLAINT: - BLOOD PRESSURE PROBLEM, VOMITING DIAGNOSES: - residential (current) use of anticoagulants - Unspecified dementia without behavioral disturbance - Other [facility] (current) drug therapy - Chronic obstructive pulmonary disease, unspecified - Personal history of nicotine dependence - Urinary tract infection, site not specified - Essential (primary) hypertension - Allergy status to other antibiotic agents status - Allergy status to other drugs, medicaments and biological sub 04/13/2020 11:06 [facility] [place] TYPE: Emergency COMPLAINT: - BREATHING PROBLEM DIAGNOSES: - Chronic obstructive pulmonary disease, unspecified - Allergy status to other drugs, medicaments and biological sub - Personal history of nicotine dependence - Encounter for general adult medical examination without abnor - Other [facility] (current) drug therapy - Allergy status to other antibiotic agents status - Encounter for general adult medical examination without abnor INPATIENT VISIT TRACKING (12 MO.) No inpatient visits to display in this time frame [email or web address]
[2020-06-20] MEDS ORDERED: ADVAIR 250-501 EACH INH (22:38)
[2020-06-20] MEDS ORDERED: IPRAT-ALBUT 0.5-3 ML INH (22:41)
[2020-06-21] MEDS ORDERED: BACLOFEN10 MG PO (14:13)
[2020-06-21] MEDS ORDERED: BISA-LAX5 MG PO (14:14)
[2020-06-21] MEDS ORDERED: GABAPENTIN100 MG PO (14:15)
[2020-06-21] MEDS ORDERED: HYDROCODON-ACE1 EA10 PO (14:25)
[2020-06-21] MEDS ORDERED: VENTOLIN HFA18 GM INH (14:26)
--- NOTE | 2020-06-21 17:33 | EKG ---
[facility] [address] [facility] [place] [address] Signed Sinus tachycardia Rightward axis Pulmonary disease pattern Cannot rule out Inferior infarct , age undetermined Abnormal ECG When compared with ECG of 13-APR-2020 11:13, Vent. rate has increased BY 51 BPM Nonspecific T wave abnormality now evident in Inferior leads Confirmed by ARRON SHANE MD ([id number]) on 06/21/2020 5:33:39 PM Electronically Signed By: ARRON SHANE MD 06/21/20 1733 PATIENT NAME: ANDREA PATEL Electrocardiogram DATE OF : 34 PHYSICIAN: ARRON SHANE MD REPORT #: [id number] REPORT IS CONFIDENTIAL AND NOT TO BE RELEASED WITHOUT AUTHORIZATION
[2020-06-24] MEDS ORDERED: CEFTRIAXONE2 G1 IV (15:23)
[2020-06-24] MEDS ORDERED: IPRAT-ALBUT 0.5-3 ML INH (15:23)
[2020-06-24] MEDS ORDERED: VENTOLIN HFA18 GM INH (15:24)
[2020-06-24] MEDS ORDERED: SODIUM CHLORID IV (15:26)
--- NOTE | 2020-06-25 22:44 | PATH ---
[facility] [address] [place], [place] [address] Signed ORDERING PHYSICIAN: Britton NESBITT, Sandra King PATIENT NAME: ANDREA PATEL GENDER: F : 1930 Prior History: DATE CASE NUM ADEQUACY DIAGNOSIS HPV RESULTS PHYSICIAN The 5 most recent reports are included. This history does not include results of pap smears performed at another laboratory. SPECIMEN(S): MOLECULAR PATHOLOGY RESULTS: SARS-CoV-2 Not Detected ADDITIONAL NOTES.: The [place] Fusion SARS-CoV-2 Assay is a multiplex real-time PCR (RT-PCR) in vitro diagnostic test intended for the qualitative detection of RNA from SARS-CoV-2 from individuals who meet COVID-19 clinical and/or epidemiological criteria. In general, SARS-CoV-2 RNA can be detected during the acute phase of infection. Positive results indicate the presence of SARS-CoV-2 RNA. Clinical correlation with patient history and other diagnostic information is necessary to determine patient infection status. Positive results do not rule out bacterial infection or co-infection with other viruses. Negative results do not preclude SARS-CoV-2 infection and should not be used as the sole basis for patient management decisions. Negative results must be combined with other clinical observations, patient history, and epidemiological information. The [place] Fusion SARS-CoV-2 Assay is not yet approved or cleared by the [place] FDA. When there are no FDA-approved or cleared tests available, and other criteria are met, FDA can make tests available under an emergency access mechanism called an Emergency Use Authorization (EUA). The EUA for this test is supported by the [place] of Health and Human Service's (HHS's) declaration that circumstances exist to justify the emergency use of in vitro diagnostics for the detection and/or diagnosis of the virus that causes COVID-19. This EUA will remain in effect for the duration of the COVID-19 declaration justifying emergency of IVDs, unless it is terminated or PATIENT NAME: ANDREA PATEL PATHOLOGY DATE OF : 34 REPORT #: [id number] PHYSICIAN: DYLON PATHOLOGY PCP: JESUS LANE MD REPORT IS CONFIDENTIAL AND NOT TO BE RELEASED WITHOUT AUTHORIZATION [facility] [address] [facility] [place], [place] [address] Signed revoked by FDA, after which the test may no longer be used. The [place] Fusion SARS-CoV-2 Assay is for use only under EUA in US laboratories certified under the Clinical Laboratory Improvement Amendments of 1988 (CLIA) to perform high complexity tests. [facility] is certified under CLIA to perform high complexity clinical laboratory testing. PERFORMING LABORATORY.: Molecular testing was performed by [facility] [place] [address] (Red Hat Engineer: Guerrero Summers D.O.; CLIA#: [id number]) Diagnostician: System Interface Pathologist Electronically Signed 06/25/2020 Copies: ~ PATIENT NAME: ANDREA PATEL PATHOLOGY DATE OF : 34 REPORT #: [id number] PHYSICIAN: DYLON ESCOBAR PCP: JESUS LANE MD REPORT IS CONFIDENTIAL AND NOT TO BE RELEASED WITHOUT AUTHORIZATION
== END 2020-06-25 11:20 | DRG 871 ==
LOC: ED 21:21 → CCU 23:25 → MS 06-23 14:25
PROVIDERS: ADMIT Internal Medicine; ATTEND Internal Medicine
PROC: 3E033XZ Introduction of Vasopressor into Peripheral Vein, Percutaneous Approach (ICD-10-PCS; 2020-06-21)
PROC: 05HB33Z Insertion of Infusion Device into Right Basilic Vein, Percutaneous Approach (ICD-10-PCS; principal; 2020-06-21 15:30)
DX: A41.51 Sepsis due to Escherichia coli [E. coli] (principal); R65.21 Severe sepsis with septic shock; J96.21 Acute and chronic respiratory failure with hypoxia; G93.41 Metabolic encephalopathy; J69.0 Pneumonitis due to inhalation of food and vomit; N10 Acute pyelonephritis; Z20.828 Contact with and (suspected) exposure to other viral communicable diseases; J41.1 Mucopurulent chronic bronchitis; J41.0 Simple chronic bronchitis; E78.5 Hyperlipidemia, unspecified; I69.320 Aphasia following cerebral infarction; F39 Unspecified mood [affective] disorder; G50.0 Trigeminal neuralgia; Z66 Do not resuscitate; Z88.1 Allergy status to other antibiotic agents; Z99.81 Dependence on supplemental oxygen; Z87.891 Personal history of nicotine dependence; Z88.8 Allergy status to other drugs, medicaments and biological substances; Z79.02 Long term (current) use of antithrombotics/antiplatelets; Z79.51 Long term (current) use of inhaled steroids; Z79.899 Other long term (current) drug therapy
CPT/HCPCS: 36415; 36569; 51701; 51702; 71045; 80048; 80053; 81001; 83605; 83735; 84484; 85025; 87040; 87077; 87088; 87186; 93005; 93010; 94640; 94664; 94667; 94760; 99285-25; C1751; C9803; J0696; J1630; J1650; J2270; J2543; J3475; J3480; J7060; J7121